=== PATIENT | female | born 1995 | race Caucasian/White ===

== ENCOUNTER 2023-03-13 16:10 | Emergency (ER) | payer SELFPAY ==
[2023-03-13 17:07] LABS: Absolute Lymphocytes (CBC) 2.6 K/uL (0.7-4.9); Hematocrit 41.6 % (36.0-45.0); Lymphocytes % 32.3 % (15.3-44.8); MCV 87.6 fL (80-100); MPV 9.1 fL (7.6-11.3); Platelets 234 thou/uL (152-406); RBC Red Blood Cell Count 4.75 M/uL (3.86-4.86)
[2023-03-13 17:26] LABS: Albumin 3.9 g/dL (3.4-5.0); Bilirubin Total 0.3 mg/dL (0.2-1.0); Potassium 3.8 mEq/L (3.5-5.1); Protein, Total 8.1 g/dL (6.4-8.2)
--- NOTE | 2023-03-13 17:48 | ER ---
Nurse's Notes [facility] Name: Shannon Mcgregor Age: 28 yrs Sex: Female : 1995 Arrival Date: 03/13/2023 Time: 16:10 Bed 5 Private MD: Diagnosis: Bacterial Vaginosis Presentation: 03/13 16:20 Chief complaint: Patient states: Suprapubic discomfort with odorous vaginal discharge ss that began 5 days ago. Coronavirus screen: Client denies travel out of the [place] in the last 14 days. Ebola Screen: Patient denies exposure to infectious person. Patient denies travel to an Ebola-affected area in the 21 days before illness onset. Initial Sepsis Screen: Does the patient meet any 2 criteria? No. Patient's initial sepsis screen is negative. Does the patient have a suspected source of infection? No. Patient's initial sepsis screen is negative. Risk Assessment: Do you want to hurt yourself or someone else? Patient reports no desire to harm self or others. Onset of symptoms was March 08, 2023. 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 - Social history:: Smoking status: Patient denies any tobacco usage or history of. Screenin:00 [facility] ED Fall Risk Assessment (Adult) Score/Fall Risk Level 0 - 2 = Low Risk hb Oriented to surroundings, Maintained a safe environment. Abuse screen: Denies threats or abuse. Denies injuries from another. Nutritional screening: No deficits noted. Tuberculosis screening: No symptoms or risk factors identified. Assessment: 16:50 General: Appears in no apparent distress. Behavior is calm, cooperative. Pain: Pain hb currently is 5 out of 10 on a pain scale. Neuro: Level of Consciousness is awake, alert, obeys commands, Oriented to person, place, time, situation. Cardiovascular: Patient's skin is warm and dry. Respiratory: Respiratory effort is even, unlabored, Respiratory pattern is regular, symmetrical. GI: No signs and/or symptoms were reported involving the gastrointestinal system. : Reports discharge, malodorous, pain in suprapubic area. EENT: No signs and/or symptoms were reported regarding the EENT system. Derm: Skin is pink, warm \T\ dry. Musculoskeletal: No signs and/or symptoms reported regarding the musculoskeletal system. Vital Signs: 16:20 Temp 97.7(TE); Weight 60.78 kg; Height 5 ft. 3 in. ; Pain 5/10; ss 16:20 Pulse 75; Resp 14; Pulse Ox 99% ; ss 16:22 BP 126 / 91; ss 16:20 Body Mass Index 23.74 (60.78 kg, 160.02 cm) ss 16:20 Pain Scale: Adult ss ED Course: 16:13 Patient arrived in ED. im 16:16 Anton Cheng MD is Attending Physician. ec2 16:22 Triage completed. ss 16:22 Arm band placed on right wrist. ss 16:45 Inserted saline lock: 20 gauge in right antecubital area, using aseptic technique. hb Blood collected. 16:50 Patient has correct armband on for positive identification. Provided Education on: . hb 16:54 Denisa English, RN is Primary Nurse. hb 17:05 Assist provider with pelvic exam: Set up pelvic tray. Performed by Anton Cheng MD hb Specimens sent to lab. Patient tolerated well. 18:14 IV discontinued, intact, bleeding controlled, No redness/swelling at site. hb Administered Medications: 18:05 Drug: metroNIDAZOLE PO 500 mg PO once Route: PO; hb 18:44 Follow up: Response: Medication administered at discharge. hb Medication: 16:50 VIS not applicable for this client. hb Outcome: 17:47 Discharge ordered by . ec2 18:15 Discharged to home ambulatory, hb 18:15 Condition: stable 18:15 Discharge instructions given to patient, Instructed on discharge instructions, follow up and referral plans. medication usage, Demonstrated understanding of instructions, follow-up care, medications, Prescriptions given X 1, 18:45 Patient left the ED. hb Signatures: Shu Shipman RN RN Denisa English, AQUILES RN Kaylie Bowman Anton Cheng MD MD ec2
--- NOTE | 2023-03-13 17:48 | EDPHYS ---
Physician Documentation [facility] Name: Shannon Mcgregor Age: 28 yrs Sex: Female : 1995 Arrival Date: 03/13/2023 Time: 16:10 Bed 5 Private MD: ED Physician Anton Cheng HPI: 03/13 16:34 This 28 yrs old Female presents to ER via Ambulatory with complaints of Lower ec2 abdominal pain -5 days. 16:34 Patient arrives today for evaluation of lower abdominal pain as well as vaginal ec2 discharge. Patient reports that she is been having occasional vaginal discharge is increased per her baseline. Patient reports she is also having some suprapubic discomfort. Patient reports no vomiting, no diarrhea, no urinary complaints. States that she has previous urinary tract infections does not feel similar.. 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 - Social history:: Smoking status: Patient denies any tobacco usage or history of. ROS: 16:34 Constitutional: as per hpi ec2 Exam: 16:34 Constitutional: GEN: NAD Head: atraumatic Eyes: EOMI Ears: External ears are ec2 normal. CV: regular rate LUNGS: no respiratory distress ABD: non-distended, soft, not guarding, minimally tender in the suprapubic region. SKIN: no evidence of rashes MSK: no evidence of trauma NEURO: moves all extremities equally Vital Signs: 16:20 Temp 97.7(TE); Weight 60.78 kg; Height 5 ft. 3 in. ; Pain 5/10; ss 16:20 Pulse 75; Resp 14; Pulse Ox 99% ; ss 16:22 BP 126 / 91; ss 16:20 Body Mass Index 23.74 (60.78 kg, 160.02 cm) ss 16:20 Pain Scale: Adult ss MDM: 16:26 Patient medically screened. ec2 16:34 Data reviewed: vital signs. ED course: Patient arrives today for evaluation of lower ec2 abdominal pain. Examination remarkable for well-appearing nontoxic individual is otherwise in no acute distress who has some suprapubic discomfort on abdominal examination. Will obtain basic lab work, urine studies and perform a speculum exam. Currently considering UTI, BV, STI. Patient states that she is not specifically concerned about STI would not like empiric antibiotic therapy. . 17:19 ED course: Pelvic examination performed under nurse supervision, shows thick white ec2 discharge coming from the cervix, no significant tenderness. Again discussed empiric therapy for STI however she declined.. 17:35 ED course: CBC is reassuring, reassuring metabolic profile, wet prep shows clue cells, ec2 consistent with BV. Will start on metronidazole. . 17:46 ED course: Likely culprit identified with BV. Will defer urine studies.. ec2 03/13 16:34 Order name: CBC with Diff; Complete Time: 17:19 ec2 03/13 16:34 Order name: CMP; Complete Time: 17:35 ec2 03/13 16:34 Order name: Lipase; Complete Time: 17:35 ec2 03/13 16:34 Order name: Wet Prep; Complete Time: 17:35 ec2 03/13 16:34 Order name: GC (Deepak/Chl) Probe VAGINAL (Do not order if pt is under 13, order Culture ec2 instead) 03/13 16:34 Order name: IV Saline Lock; Complete Time: 16:51 ec2 03/13 16:34 Order name: Labs collected and sent; Complete Time: 16:51 ec2 03/13 16:34 Order name: Setup-Pelvic Exam; Complete Time: 17:00 ec2 Administered Medications: 18:05 Drug: metroNIDAZOLE PO 500 mg PO once Route: PO; hb 18:44 Follow up: Response: Medication administered at discharge. hb Disposition Summary: 03/13/23 17:47 Discharge Ordered Notes: Location: Home ec2 Condition: Stable ec2 Diagnosis - Bacterial Vaginosis ec2 Discharge Instructions: - Discharge Summary Sheet eb - Bacterial Vaginosis, [id number] ec2 Forms: - SBAR form eb - Medication Reconciliation Form ec2 - Thank You Letter ec2 - Antibiotic Education ec2 - Prescription Opioid Use ec2 - Patient Portal Instructions ec2 - Leadership Thank You Letter ec2 Prescriptions: - Flagyl 500 mg Oral Tablet - take 1 tablet ORAL route every 12 hours for 7 days; 14 tablet; Refills: 0, ec2 Product Selection Permitted Signatures: [facility] Shu Claros RN RN Denisa English RN RN Anton Cheng MD MD ec2
[2023-03-13] MEDS ORDERED: metroNIDAZOLE 500 MG TABLET ONE (17:57)
[2023-03-13 19:05] VITALS: TEMP 97.7; O2SAT 99
[2023-03-13 19:10] VITALS: BP 126/91
[2023-03-17 03:15] LABS: C.trachomatis RNA,TMA Not Detected (Not Detected)
== END 2023-03-13 18:45 | disposition home or self-care (01) ==
LOC: ER 16:10
DX: N76.0 Acute vaginitis (principal)
CPT/HCPCS: 36415; 80053; 83690; 85025; 87210; 87490; 87590; 99284

== ENCOUNTER 2023-04-05 12:14 | Emergency (ER) | payer SELFPAY ==
[2023-04-05 13:08] LABS: Absolute Lymphocytes (CBC) 1.9 K/uL (0.7-4.9); Lymphocytes % 26.1 % (15.3-44.8); MCV 88.7 fL (80-100); Platelets 172 thou/uL (152-406); RBC Red Blood Cell Count 4.51 M/uL (3.86-4.86)
[2023-04-05 13:15] LABS: Specific Gravity 1.009 (1.005-1.030)
[2023-04-05 13:16] LABS: Specific Gravity 1.009 (1.005-1.030); Urine Bacteria None Seen /HPF (<20); Urine Bilirubin NEGATIVE (Negative); Urine Blood Negative (Negative); Urine Clarity Turbid (Clear); Urine Color Colorless (Yellow); Urine Glucose NEGATIVE (Negative); Urine Mucus Slight /HPF (None Seen); Urine Protein NEGATIVE (Negative); Urine RBC <5 /HPF (None Seen); Urine Urobilinogen Normal (Normal); Urine pH 5.5 (5.0-7.0)
[2023-04-05 13:33] LABS: Albumin 3.5 g/dL (3.4-5.0); Bilirubin Total 0.3 mg/dL (0.2-1.0); Protein, Total 7.1 g/dL (6.4-8.2)
--- NOTE | 2023-04-05 13:49 | RAD REPORT ---
EXAM DESCRIPTION: CT - Abdomen Pelvis W Contrast - 04/05/2023 1:31 pm CLINICAL HISTORY: Abdominal pain COMPARISON: none. TECHNIQUE: Computed axial tomography of the abdomen pelvis was obtained. 100 cc Isovue-300 was admin istered intravenously. Oral contrast was not requested which limits evaluation of bowel and appendix All CT scans are performed using dose optimization technique as appropriate and may include automated exposure control or mA/KV adjustment according to patient size. FINDINGS: Liver, spleen, pancreas, adrenals and right kidney unremarkable. Small left renal cyst No evidence of diverticulitis. Moderate amount of stool within the colon 2.6 centimeter right ovarian cyst without significant free fluid. No followup imaging recommended. Small umbilical hernia Appendectomy IMPRESSION: 2.6 centimeter right ovarian cyst without significant free fluid Moderate amount of stool within the colon
--- NOTE | 2023-04-05 13:59 | EDPHYS ---
Physician Documentation [facility] Name: Shannon Mcgregor Age: 28 yrs Sex: Female : 1995 Arrival Date: 04/05/2023 Time: 12:14 Bed 11 Private MD: ED Physician Jose Nguyễn HPI: 04/05 13:09 This 28 yrs old Female presents to ER via Ambulatory with complaints of Abdominal Pain. sp3 13:09 28-year-old female with history of anxiety and recent treatment for bacterial vaginosis sp3 completed on March 21, 2023 now presents to the ED with approximately 10-day history of abdominal pain on the left lower side. She states the pain is off and on and moderate in nature. She denies any other symptoms including continued vaginal discharge, bleeding, odor, dyspareunia, headache, URI symptoms, fever, neck pain, shortness of breath, chest pain, back pain, upper abdominal pain, vomiting or diarrhea, or any other signs or symptoms on ROS at this time. Patient states her menses are irregular and she cannot remember the last time she had it. Past surgical history includes appendectomy.. Historical: - Allergies: 12:38 Codeine; ll1 12:38 Zithromax; ll1 - PMHx: 12:38 Anxiety; ll1 - PSHx: 12:38 Appendectomy; ll1 - Immunization history:: Adult Immunizations up to date. - Social history:: Smoking status: Patient denies any tobacco usage or history of. ROS: 13:12 Constitutional: Negative for fever, chills, and weight loss, Eyes: Negative for injury, sp3 pain, redness, and discharge, ENT: Negative for injury, pain, and discharge, Neck: Negative for injury, pain, and swelling, Cardiovascular: Negative for chest pain, palpitations, and edema, Respiratory: Negative for shortness of breath, cough, wheezing, and pleuritic chest pain, Back: Negative for injury and pain, : Negative for injury, bleeding, discharge, and swelling, MS/Extremity: Negative for injury and deformity, Skin: Negative for injury, rash, and discoloration, Neuro: Negative for headache, weakness, numbness, tingling, and seizure, Psych: Negative for depression, anxiety, suicide ideation, homicidal ideation, and hallucinations, Allergy/Immunology: Negative for hives, rash, and allergies, Endocrine: Negative for neck swelling, polydipsia, polyuria, polyphagia, and marked weight changes, Hematologic/Lymphatic: Negative for swollen nodes, abnormal bleeding, and unusual bruising, 13:12 All other systems are negative, Exam: 13:12 Constitutional: This is a well developed, well nourished patient who is awake, alert, sp3 and in no acute distress. Head/Face: Normocephalic, atraumatic. Eyes: Pupils equal round and reactive to light, extra-ocular motions intact. Lids and lashes normal. Conjunctiva and sclera are non-icteric and not injected. Cornea within normal limits. Periorbital areas with no swelling, redness, or edema. ENT: Nares patent. No nasal discharge, no septal abnormalities noted. External auditory canals are clear. Oropharynx with no redness, swelling, or masses, exudates, or evidence of obstruction, uvula midline. Mucous membranes moist. Neck: Trachea midline, no thyromegaly or masses palpated, and no cervical lymphadenopathy. Supple, full range of motion without nuchal rigidity, or vertebral point tenderness. No Meningismus. Chest/axilla: Normal chest wall appearance and motion. Nontender with no deformity. No lesions are appreciated. Cardiovascular: Regular rate and rhythm with a normal S1 and S2. No gallops, murmurs, or rubs. Normal PMI, no JVD. No pulse deficits. Respiratory: Lungs have equal breath sounds bilaterally, clear to auscultation and percussion. No rales, rhonchi or wheezes noted. No increased work of breathing, no retractions or nasal flaring. Back: No spinal tenderness. No costovertebral tenderness. Full range of motion. Skin: Warm, dry with normal turgor. Normal color with no rashes, no lesions, and no evidence of cellulitis. MS/ Extremity: Pulses equal, no cyanosis. Neurovascular intact. Full, normal range of motion. Neuro: Awake and alert, GCS 15, oriented to person, place, time, and situation. Cranial nerves II-XII grossly intact. Motor strength 5/5 in all extremities. Sensory grossly intact. Cerebellar exam normal. Normal gait. Psych: Awake, alert, with orientation to person, place and time. Behavior, mood, and affect are within normal limits. 13:12 Abdomen/GI: Abdomen is soft with mild tenderness in the left lower quadrant. No rebound or guarding noted and no peritoneal signs. Nonsurgical abdomen., Vital Signs: 12:38 BP 141 / 87; Pulse 68; Resp 16; Temp 97.8; Pulse Ox 100% on R/A; Weight 60.78 kg; ll1 Height 5 ft. 3 in. ; Pain 5/10; 14:04 BP 124 / 82; Pulse 74; Resp 16; Pulse Ox 100% on R/A; mb9 12:38 Body Mass Index 23.74 (60.78 kg, 160.02 cm) ll1 12:38 Pain Scale: Adult ll1 MDM: 12:36 Patient medically screened. sp3 13:13 Data reviewed: vital signs, nurses notes, old medical records, lab test result(s), sp3 radiologic studies. ED course: 28-year-old female with recurrent left-sided abdominal pain. 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 Differential includes ovarian cyst, UTI, functional abdominal pain, GI related pain, constipation, among others. I am not highly suspicious for ovarian torsion, PID, or any other critical process at this time. Work-up will include CT scan of the abdomen pelvis, laboratory values, urine analysis and hCG and general observation.. 13:57 ED course: CT scan demonstrates 2.6 cm ovarian cyst on the right side and significant sp3 constipation. Laboratory values are all within normal limits. At this point no acute intervention is required and we will safely discharge patient home with discharge instructions for constipation.. 04/05 12:51 Order name: CBC with Diff; Complete Time: 13:40 sp3 04/05 12:51 Order name: CMP; Complete Time: 13:40 sp3 04/05 12:51 Order name: Lipase; Complete Time: 13:40 sp3 04/05 12:51 Order name: Test, Urine; Complete Time: 13:40 sp3 04/05 12:51 Order name: Urinalysis w/ reflexes; Complete Time: 13:40 sp3 04/05 12:51 Order name: CT Abd/Pelvis - IV Contrast Only; Complete Time: 13:57 sp3 04/05 12:51 Order name: IV Saline Lock; Complete Time: 13:02 sp3 04/05 12:51 Order name: Labs collected and sent; Complete Time: 13:02 sp3 Administered Medications: No medications were administered Disposition Summary: 04/05/23 13:58 Discharge Ordered Notes: Location: Home sp3 Condition: Stable sp3 Diagnosis - Abdominal pain, constipation sp3 Followup: sp3 - With: Private Physician - When: Upon discharge from the Emergency Department - Reason: Continuance of care Discharge Instructions: - Discharge Summary Sheet sp3 - Abdominal Pain, Adult sp3 - Constipation, Adult sp3 Forms: - Medication Reconciliation Form sp3 - Thank You Letter sp3 - Antibiotic Education sp3 - Prescription Opioid Use sp3 - Patient Portal Instructions sp3 - Leadership Thank You Letter sp3 Signatures: Dispatcher [employer] Zheng Yee RN RN ll1 Jose Nguyễn MD MD sp3
--- NOTE | 2023-04-05 13:59 | ER ---
Nurse's Notes [facility] Name: Shannon Mcgregor Age: 28 yrs Sex: Female : 1995 Arrival Date: 04/05/2023 Time: 12:14 Bed 11 Private MD: Diagnosis: Abdominal pain, constipation Presentation: 04/05 12:38 Chief complaint: Patient states: Lower abdominal pain continues since being treated ll1 here 3 weeks ago for B.V. Vaginal discharge is better now. Coronavirus screen: Vaccine status: Patient reports being unvaccinated. Client denies travel out of the [place] in the last 14 days. At this time, the client does not indicate any symptoms associated with coronavirus-19. Ebola Screen: Patient denies travel to an Ebola-affected area in the 21 days before illness onset. Initial Sepsis Screen: Does the patient meet any 2 criteria? No. Patient's initial sepsis screen is negative. Does the patient have a suspected source of infection? Yes: Acute abdominal pain. Risk Assessment: Do you want to hurt yourself or someone else? Patient reports no desire to harm self or others. Onset of symptoms. 12:38 Method Of Arrival: Ambulatory ll1 12:38 Acuity: ROLANDO 3 ll1 12:40 Onset of symptoms was March 08, 2023. 1 Triage Assessment: 12:40 General: Appears in no apparent distress. Behavior is calm, cooperative, appropriate ll1 for age. Pain: Complains of pain in pelvis Pain currently is 5 out of 10 on a pain scale. Quality of pain is described as aching, crampy. GI: Reports lower abdominal pain, cramping. Historical: - Allergies: 12:38 Codeine; ll1 12:38 Zithromax; ll1 - PMHx: 12:38 Anxiety; ll1 - PSHx: 12:38 Appendectomy; ll1 - Immunization history:: Adult Immunizations up to date. - Social history:: Smoking status: Patient denies any tobacco usage or history of. Screenin:43 [facility] ED Fall Risk Assessment (Adult) History of falling in the last 3 months, mb9 including since admission No falls in past 3 months (0 pts) Confusion or Disorientation No (0 pts) Intoxicated or Sedated No (0 pts) Impaired Gait No (0 pts) Mobility Assist Device Used No (0 pt) Altered Elimination No (0 pt) Score/Fall Risk Level 0 - 2 = Low Risk Oriented to surroundings, Maintained a safe environment, Educated pt \T\ family on fall prevention, incl call for assistance when getting out of bed. Abuse screen: Denies threats or abuse. Nutritional screening: No deficits noted. Tuberculosis screening: No symptoms or risk factors identified. Assessment: 13:00 General: Appears in no apparent distress. Behavior is calm, cooperative. Pain: mb9 Complains of pain in abdomen Pain radiates to LLQ and pelvis Quality of pain is described as throbbing, Is intermittent, Aggravated by increased activity. Neuro: Montoya Agitation-Sedation Scale (RASS): 0 - Alert and Calm Level of Consciousness is awake, alert, obeys commands, Oriented to person, place, time, situation, Appropriate for age. Cardiovascular: Patient's skin is warm and dry. Respiratory: Airway is patent Respiratory effort is even, unlabored, Respiratory pattern is regular, symmetrical. GI: Abdomen is flat, non-distended, Bowel sounds present X 4 quads. Abd is soft Abdomen is tender to palpation in suprapubic area and left lower quadrant Patient currently denies diarrhea, nausea, vomiting. : Urine is clear. EENT: No signs and/or symptoms were reported regarding the EENT system. Derm: Skin is pink, warm \T\ dry. Musculoskeletal: Range of motion: intact in all extremities. 13:59 Reassessment: No changes from previously documented assessment. Patient and/or family mb9 updated on plan of care and expected duration. Pain level reassessed. Patient is alert, oriented x 3, equal unlabored respirations, skin warm/dry/pink. Vital Signs: 12:38 BP 141 / 87; Pulse 68; Resp 16; Temp 97.8; Pulse Ox 100% on R/A; Weight 60.78 kg; ll1 Height 5 ft. 3 in. ; Pain 5/10; 14:04 BP 124 / 82; Pulse 74; Resp 16; Pulse Ox 100% on R/A; mb9 12:38 Body Mass Index 23.74 (60.78 kg, 160.02 cm) ll1 12:38 Pain Scale: Adult ll1 ED Course: 12:33 Patient arrived in ED. mg5 12:34 Jose Nguyễn MD is Attending Physician. sp3 12:40 Triage completed. ll1 12:40 Arm band placed on Patient placed in an exam room, on a stretcher. ll1 12:42 Onelia Mendoza, RN is Primary Nurse. mb9 12:43 Placed in gown. Bed in low position. Call light in reach. Side rails up X 1. Client mb9 placed on continuous cardiac and pulse oximetry monitoring. NIBP monitoring applied. 12:43 No provider procedures requiring assistance completed. mb9 12:59 Initial lab(s) drawn, by me, sent to lab. em1 13:01 Inserted saline lock: 20 gauge in right antecubital area, using aseptic technique. mb9 ,using aseptic technique. done by Owen Blood collected. 13:02 CBC with Diff Sent. mb9 13:02 CMP Sent. mb9 13:02 Lipase Sent. mb9 13:02 Test, Urine Sent. mb9 13:02 Urinalysis w/ reflexes Sent. mb9 13:33 CT Abd/Pelvis - IV Contrast Only In Process Unspecified. EDMS 13:59 IV discontinued, intact, bleeding controlled, No redness/swelling at site. Pressure mb9 dressing applied. Administered Medications: No medications were administered Medication: 12:43 VIS not applicable for this client. mb9 Outcome: 13:58 Discharge ordered by . sp3 14:04 Discharged to home ambulatory, mb9 14:04 Condition: stable 14:04 Discharge instructions given to patient, Instructed on discharge instructions, follow up and referral plans. Demonstrated understanding of instructions, follow-up care, 14:04 Patient left the ED. mb9 Signatures: Dispatcher [employer] Owen Davis em1 Zheng Randle, AQUILES RN ll1 Jose Nguyễn MD MD sp3 Onelia Mendoza, RN RN mb9 Anh Lieberman mg5 Corrections: (The following items were deleted from the chart) 13:01 12:42 Reassessment: see triage assessment mb9 mb9
[2023-04-05 14:18] VITALS: TEMP 97.8; O2SAT 100
[2023-04-05 14:23] VITALS: BP 124/82
== END 2023-04-05 14:04 | disposition home or self-care (01) ==
LOC: ER 12:14
DX: K59.00 Constipation, unspecified (principal); Z88.1 Allergy status to other antibiotic agents; Z88.5 Allergy status to narcotic agent
CPT/HCPCS: 36415; 74177; 80053; 81001; 81025; 83690; 85025; 99284; Q9967

== ENCOUNTER → 2023-06-19 | Emergency (ER) | payer OTHER, SELFPAY ==
[~2023-06-19] MED LIST: DIPHENHYDRAMINE 25 MG TAB/CAP ONE; KETOROLAC 30 MG/ML INJ ONE; predniSONE 20 MG TAB ONE
--- NOTE | 2023-06-19 19:18 | ER ---
Nurse's Notes [facility] Name: Shannon Mcgregor Age: 28 yrs Sex: Female : 1995 Arrival Date: 06/19/2023 Time: 18:07 Bed 12 Private MD: Diagnosis: Irritant contact dermatitis due to other agents Presentation: 06/19 18:17 Chief complaint: Patient states: used new acne treatment cream last night and now face ko1 and eyes are burning, has washed it off tiff has made acne worse. Coronavirus screen: At this time, the client does not indicate any symptoms associated with coronavirus-19. Ebola Screen: No symptoms or risks identified at this time. Initial Sepsis Screen: Does the patient meet any 2 criteria? No. Patient's initial sepsis screen is negative. Does the patient have a suspected source of infection? No. Patient's initial sepsis screen is negative. Risk Assessment: Do you want to hurt yourself or someone else? Patient reports no desire to harm self or others. Onset of symptoms is unknown. 18:17 Method Of Arrival: Ambulatory ko1 18:17 Acuity: ROLANDO 4 ko1 Triage Assessment: 18:21 General: Appears in no apparent distress. Behavior is calm, cooperative, appropriate ko1 for age. Pain: Complains of pain in face. Historical: - Allergies: 18:21 Codeine; ko1 18:21 Zithromax; ko1 - PMHx: 18:21 Anxiety; ko1 - PSHx: 18:21 Appendectomy; ko1 - Immunization history:: Adult Immunizations up to date. - Social history:: Smoking status: Patient denies any tobacco usage or history of. Screenin:27 [facility] ED Fall Risk Assessment (Adult) History of falling in the last 3 months, bp including since admission No falls in past 3 months (0 pts). Abuse screen: Denies threats or abuse. Denies injuries from another. Nutritional screening: No deficits noted. Tuberculosis screening: No symptoms or risk factors identified. Assessment: 18:30 General: SEE TRIAGE NOTE. bp 19:27 Reassessment: PT DC HOME AMBULATORY. bp Vital Signs: 18:17 BP 127 / 91; Pulse 72; Resp 14; Temp 98; Pulse Ox 100% ; ko1 19:28 BP 123 / 69; Pulse 75; Resp 16; Pulse Ox 100% ; bp ED Course: 18:10 Patient arrived in ED. ra3 18:11 [facility] Orellana [facility] sb4 18:11 Fredrick Lester MD is Attending Physician. sb4 18:21 Triage completed. ko1 18:21 Arm band placed on right wrist. Patient placed in an exam room, on a stretcher, Patient ko1 notified of wait time. 18:41 Fredy Jimenez, RN is Primary Nurse. bp 19:27 Patient has correct armband on for positive identification. bp 19:27 No provider procedures requiring assistance completed. Patient did not have IV access bp during this emergency room visit. Administered Medications: 18:45 Drug: diphenhydrAMINE PO 50 mg PO once Route: PO; bp 19:29 Follow up: Response: No adverse reaction bp 18:45 Drug: predniSONE PO 40 mg PO once Route: PO; bp 19:29 Follow up: Response: No adverse reaction bp 18:45 Drug: Ketorolac IM 30 mg IM once Route: IM; Site: left deltoid; bp 19:29 Follow up: Response: No adverse reaction bp Medication: 19:27 VIS not applicable for this client. bp Outcome: 19:18 Discharge ordered by MD. sb4 19:27 Discharged to home ambulatory, bp 19:27 Condition: stable 19:27 Discharge instructions given to patient, Instructed on discharge instructions, follow up and referral plans. medication usage, Demonstrated understanding of instructions, follow-up care, medications, Prescriptions given X 1, 19:29 Patient left the ED. bp Signatures: Fredy Jimenez RN RN bp Negrita Chavis RN RN ko1 Mi Orellana PA-C PA-C sb4 Nathalie Torres ra3
--- NOTE | 2023-06-19 19:18 | EDPHYS ---
Physician Documentation [facility] Name: Shannon Mcgregor Age: 28 yrs Sex: Female : 1995 Arrival Date: 06/19/2023 Time: 18:07 Bed 12 Private MD: ED Physician Fredrick Lester HPI: 06/19 18:38 This 28 yrs old Female presents to ER via Ambulatory with complaints of facial burning sb4 sensation. 18:38 patient states that she used a new OTC acne medication last night and now has had sb4 severe facial burning despite washing her face several times. she declines any systemic symptoms- no sob, chest pain, wheezing. took advil this morning but has not tried any other remedies. Historical: - Allergies: 18:21 Codeine; ko1 18:21 Zithromax; ko1 - PMHx: 18:21 Anxiety; ko1 - PSHx: 18:21 Appendectomy; ko1 - Immunization history:: Adult Immunizations up to date. - Social history:: Smoking status: Patient denies any tobacco usage or history of. ROS: 18:38 Constitutional: Negative for fever, chills, and weight loss, sb4 18:38 Skin: Positive for erythema, swelling, of the face, 18:38 All other systems are negative, Exam: 18:38 Constitutional: This is a well developed, well nourished patient who is awake, alert, sb4 and in no acute distress. Head/Face: Normocephalic, atraumatic. Eyes: Extra-ocular motions intact. Periorbital areas with no swelling, redness, or edema. ENT: Mucous membranes moist. MS/ Extremity: Pulses equal, no cyanosis. Neurovascular intact. Full, normal range of motion. Neuro: Awake and alert, GCS 15, oriented to person, place, time, and situation. Motor strength 5/5 in all extremities. Sensory grossly intact. 18:38 Skin: contact dermatitis, on the face, Vital Signs: 18:17 BP 127 / 91; Pulse 72; Resp 14; Temp 98; Pulse Ox 100% ; ko1 19:28 BP 123 / 69; Pulse 75; Resp 16; Pulse Ox 100% ; bp MDM: 18:23 Patient medically screened. sb4 19:11 Data reviewed: vital signs, nurses notes, and as a result, I will discharge patient. sb4 Administered Medications: 18:45 Drug: diphenhydrAMINE PO 50 mg PO once Route: PO; bp 19:29 Follow up: Response: No adverse reaction bp 18:45 Drug: predniSONE PO 40 mg PO once Route: PO; bp 19:29 Follow up: Response: No adverse reaction bp 18:45 Drug: Ketorolac IM 30 mg IM once Route: IM; Site: left deltoid; bp 19:29 Follow up: Response: No adverse reaction bp Disposition: 06/20 07:12 Co-signature as Attending Physician, Fredrick Lester MD I reviewed the patient's care rt provided by the Advanced Practice Provider and agree with the diagnosis and treatment plan. Disposition Summary: 06/19/23 19:18 Discharge Ordered Notes: Location: Home sb4 Problem: new sb4 Symptoms: have improved sb4 Condition: Stable sb4 Diagnosis - Irritant contact dermatitis due to other agents sb4 Followup: sb4 - With: Emergency Department - When: As needed - Reason: Trouble breathing, Worsening of condition Discharge Instructions: - Discharge Summary Sheet sb4 - Contact Dermatitis sb4 Forms: - Work release form sb4 - Thank You Letter sb4 - Patient Portal Instructions sb4 - Leadership Thank You Letter sb4 Prescriptions: - hydrocortisone acetate 1 % Topical cream - apply 1 application TOPICAL route 1 to 2 times per day as needed for skin sb4 irritation; 1 Applicator; Refills: 0, Product Selection Permitted Signatures: Fredy Jimenez, RN RN Negrita Clement RN RN koMi Woodson PA-C PA-C sb4 Fredrick Lester MD MD rt
[2023-06-19 19:49] VITALS: BP 123/69; TEMP 98; O2SAT 100
== END ==
LOC: ER 18:07
DX: L24.89 Irritant contact dermatitis due to other agents (principal); Z88.1 Allergy status to other antibiotic agents; Z88.5 Allergy status to narcotic agent
CPT/HCPCS: J7512

== ENCOUNTER → 2023-07-17 | Emergency (ER) | payer OTHER ==
--- NOTE | 2023-07-17 18:33 | EDPHYS ---
Physician Documentation [facility] Name: Shannon Mcgregor Age: 28 yrs Sex: Female : 1995 Arrival Date: 07/17/2023 Time: 18:13 Bed IW4 Private MD: ED Physician Chan Flowers HPI: 07/16 18:51 This 28 yrs old Female presents to ER via Ambulatory with complaints of Cyst. kb 18:51 Patient is a 28-year-old female who presents for redness, swelling and pain to chin kb that started 2 days ago. Denies fever. States she has had issues with infections to the area several times in the past.. 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 - Social history:: Smoking status: Patient denies any tobacco usage or history of. ROS: 18:50 Constitutional: As per HPI kb Exam: 18:51 Constitutional: This is a well developed, well nourished patient who is awake, alert, kb and in no acute distress. Head/Face: Normocephalic, atraumatic. ENT: Moist Mucous membranes Cardiovascular: Regular rate Respiratory: Respirations even and unlabored. No increased work of breathing. Talking in full sentences MS/ Extremity: Pulses equal, no cyanosis. Neurovascular intact. Full, normal range of motion. Neuro: Awake and alert, GCS 15, oriented to person, place, time, and situation. Moves all extremities. Normal gait. 18:51 Skin: abscess, that is small, of the chin, Vital Signs: 18:46 BP 129 / 85; Pulse 86; Resp 16; Temp 98.4(O); Pulse Ox 97% on R/A; Weight 58.97 kg; hb Height 5 ft. 2 in. ; Pain 7/10; 18:46 Body Mass Index 23.78 (58.97 kg, 157.48 cm) hb 18:46 Pain Scale: Adult hb MDM: 18:22 Patient medically screened. kb 18:51 Differential diagnosis: abscess, allergic reaction, cellulitis, insect bite. Data kb reviewed: vital signs, nurses notes. Counseling: I had a detailed discussion with the patient and/or guardian regarding the historical points, exam findings, and any diagnostic results supporting the discharge/admit diagnosis, the need for outpatient follow up, a family practitioner, to return to the emergency department if symptoms worsen or persist or if there are any questions or concerns that arise at home. ED course: Abscess deroofed and small amount of purulent drainage expressed. Patient educated to use warm compresses to the area and take all antibiotics prescribed.. Administered Medications: No medications were administered Disposition: 18:59 Co-signature as Attending Physician, Chan Flowers MD I agree with the assessment and cp3 plan of care. Disposition Summary: 07/17/23 18:33 Discharge Ordered Notes: Location: Home kb Condition: Stable kb Diagnosis - Cutaneous abscess of face - chin kb Followup: kb - With: Emergency Department - When: As needed - Reason: Worsening of condition Followup: kb - With: Private Physician - When: 2 - 3 days - Reason: Recheck today's complaints, Continuance of care, Re-evaluation by your physician Discharge Instructions: - Discharge Summary Sheet kb - Skin Abscess, [id number] kb Forms: - Medication Reconciliation Form kb - Thank You Letter kb - Antibiotic Education kb - Prescription Opioid Use kb - Patient Portal Instructions kb - Leadership Thank You Letter kb Prescriptions: - Doxycycline Hyclate 100 mg Oral Tablet - take 1 tablet ORAL route every 12 hours; 20 tablet; Refills: 0, Product kb Selection Permitted Signatures: Christie Martínez, CHELY-Chan Ramirez MD MD cp3 Denisa English, RN RN
--- NOTE | 2023-07-17 19:52 | ER ---
Nurse's Notes [facility] Name: Shannon Mcgregor Age: 28 yrs Sex: Female : 1995 Arrival Date: 07/17/2023 Time: 18:13 Bed IW4 Private MD: Diagnosis: Cutaneous abscess of face-chin Presentation: 07/16 18:46 Chief complaint: Redness and swelling on chin x 3 days. Coronavirus screen: At this hb time, the client does not indicate any symptoms associated with coronavirus-19. Ebola Screen: No symptoms or risks identified at this time. Initial Sepsis Screen: Does the patient meet any 2 criteria? No. Patient's initial sepsis screen is negative. Does the patient have a suspected source of infection? No. Patient's initial sepsis screen is negative. Risk Assessment: Do you want to hurt yourself or someone else? Patient reports no desire to harm self or others. Onset of symptoms was July 14, 2023. 18:46 Method Of Arrival: Ambulatory hb 18:46 Acuity: ROLANDO 4 hb Triage Assessment: 18:49 General: Appears in no apparent distress. Behavior is calm, cooperative. Pain: Pain hb currently is 7 out of 10 on a pain scale. Neuro: Level of Consciousness is awake, alert, obeys commands, Oriented to person, place, time, situation. Cardiovascular: Patient's skin is warm and dry. Respiratory: Respiratory effort is even, unlabored, Respiratory pattern is regular, symmetrical. Derm: redness and swelling noted to chin. 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 - Social history:: Smoking status: Patient denies any tobacco usage or history of. Screenin:50 [facility] ED Fall Risk Assessment (Adult) History of falling in the last 3 months, jb4 including since admission No falls in past 3 months (0 pts) Confusion or Disorientation No (0 pts) Intoxicated or Sedated No (0 pts) Impaired Gait No (0 pts) Mobility Assist Device Used No (0 pt) Altered Elimination No (0 pt) Score/Fall Risk Level 0 - 2 = Low Risk Oriented to surroundings, Maintained a safe environment. Abuse screen: Denies threats or abuse. Nutritional screening: No deficits noted. Tuberculosis screening: No symptoms or risk factors identified. Assessment: 19:50 General: Appears in no apparent distress. comfortable, Behavior is calm, cooperative, jb4 appropriate for age. Pain: Denies pain. Neuro: Level of Consciousness is awake, alert, obeys commands, Oriented to person, place, time, situation. Cardiovascular: Patient's skin is warm and dry. Respiratory: Airway is patent Respiratory effort is even, unlabored, Respiratory pattern is regular, symmetrical. GI: No signs and/or symptoms were reported involving the gastrointestinal system. : No signs and/or symptoms were reported regarding the genitourinary system. EENT: No signs and/or symptoms were reported regarding the EENT system. Derm: Skin is intact, Skin is pink, warm \T\ dry. Abscess located on chin. Musculoskeletal: Circulation, motion, and sensation intact. Range of motion: intact in all extremities. Vital Signs: 18:46 BP 129 / 85; Pulse 86; Resp 16; Temp 98.4(O); Pulse Ox 97% on R/A; Weight 58.97 kg; hb Height 5 ft. 2 in. ; Pain 7/10; 18:46 Body Mass Index 23.78 (58.97 kg, 157.48 cm) hb 18:46 Pain Scale: Adult hb ED Course: 18:19 Patient arrived in ED. mg5 18:22 Christie Martínez FNP-C [facility]. kb 18:22 Chan Flowers MD is Attending Physician. kb 18:49 Triage completed. hb 18:49 Arm band placed on. hb 19:50 Patient has correct armband on for positive identification. Provided Education on: jb4 Discharge and follow up. 19:50 No provider procedures requiring assistance completed. Patient did not have IV access jb4 during this emergency room visit. Administered Medications: No medications were administered Medication: 19:50 VIS not applicable for this client. jb4 Outcome: 18:33 Discharge ordered by . kb 19:50 Discharged to home ambulatory, jb4 19:50 Condition: stable 19:50 Discharge instructions given to patient, Instructed on discharge instructions, follow up and referral plans. medication usage, Demonstrated understanding of instructions, follow-up care, medications, Prescriptions given X , 19:51 Patient left the ED. jb4 Signatures: Christie Martínez FNP-C FNP-Ckb Baxter, Heather, RN RN Raul Brennan RN RN jb4 Anh Lieberman 5
[2023-07-17 20:13] VITALS: BP 129/85; TEMP 98.4; O2SAT 97
== END ==
LOC: ER 18:13
DX: L02.01 Cutaneous abscess of face (principal); Z88.1 Allergy status to other antibiotic agents; Z88.5 Allergy status to narcotic agent
CPT/HCPCS: 99283

== ENCOUNTER 2024-03-05 23:51 | Emergency (ER) | payer SELFPAY ==
[2024-03-06] MEDS ORDERED: KETOROLAC 30 MG/ML INJ ONE (01:32)
[2024-03-06] MEDS ORDERED: HYDROCODONE/APAP 5/325 MG TAB ONE (01:32)
[2024-03-06] MEDS ORDERED: methocarbamoL 750 MG TAB ONE (01:32)
[2024-03-06 01:42] LABS: Specific Gravity 1.013 (1.005-1.030)
--- NOTE | 2024-03-06 03:31 | ER ---
Nurse's Notes [facility] Name: Shannon Mcgregor Age: 29 yrs Sex: Female : 1995 Arrival Date: 03/05/2024 Time: 23:51 Bed 13 Private MD: Diagnosis: Lumbago with sciatica, left side Presentation: 03/06 00:00 Chief complaint: Patient states: left sciatica pain x 2 days. Coronavirus screen: Vaccine status: Patient reports being unvaccinated. Ebola Screen: Patient negative for fever greater than or equal to 101.5 degrees Fahrenheit, and additional compatible Ebola Virus Disease symptoms. Initial Sepsis Screen: Does the patient meet any 2 criteria? No. Patient's initial sepsis screen is negative. Does the patient have a suspected source of infection? No. Patient's initial sepsis screen is negative. Risk Assessment: Do you want to hurt yourself or someone else? Patient reports no desire to harm self or others. Onset of symptoms was March 04, 2024. 00:00 Method Of Arrival: Ambulatory 00:00 Acuity: ROLANDO 4 kl Triage Assessment: 00:02 General: Appears in no apparent distress. Behavior is calm, cooperative. Pain: Complains of pain in left gluteus lucas Pain currently is 8 out of 10 on a pain scale. Musculoskeletal: Circulation, motion, and sensation intact. Capillary refill < 3 seconds, Range of motion: intact in all extremities, Reports pain in left leg. 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 - Infectious Disease History:: Denies. - Social history:: Smoking status: Patient reports the use of cigarette tobacco products, Reported history of juuling and/or vaping. - Family history:: not pertinent. Screenin:10 [facility] ED Fall Risk Assessment (Adult) History of falling in the last 3 months, rg5 including since admission No falls in past 3 months (0 pts) Confusion or Disorientation No (0 pts) Intoxicated or Sedated No (0 pts) Impaired Gait No (0 pts) Mobility Assist Device Used No (0 pt) Altered Elimination No (0 pt) Score/Fall Risk Level 0 - 2 = Low Risk Oriented to surroundings, Maintained a safe environment, Hourly rounding (assess needs \T\ fall precautionary measures) done. Abuse screen: Denies threats or abuse. Nutritional screening: No deficits noted. Tuberculosis screening: No symptoms or risk factors identified. Assessment: 00:10 General: Appears in no apparent distress. Behavior is calm, cooperative. rg5 00:10 Pain: Complains of pain in left leg Pain currently is 8 out of 10 on a pain scale. rg5 Neuro: Level of Consciousness is awake, alert, Oriented to person, place, time. Cardiovascular: No deficits noted. Respiratory: Airway is patent Trachea midline Respiratory effort is even, unlabored. GI: Abdomen is flat, non-distended. : No signs and/or symptoms were reported regarding the genitourinary system. EENT: No deficits noted. Derm: Skin is intact, Skin is dry, Skin is normal, Skin temperature is warm. Musculoskeletal: Circulation, motion, and sensation intact. Range of motion: intact in all extremities. 01:10 Reassessment: Patient and/or family updated on plan of care and expected duration. Pain rg5 level reassessed. Patient is alert, oriented x 3, equal unlabored respirations, skin warm/dry/pink. 02:00 Reassessment: Patient and/or family updated on plan of care and expected duration. Pain rg5 level reassessed. Patient is alert, oriented x 3, equal unlabored respirations, skin warm/dry/pink. 03:09 Reassessment: Patient and/or family updated on plan of care and expected duration. Pain rg5 level reassessed. Patient is alert, oriented x 3, equal unlabored respirations, skin warm/dry/pink. Patient states feeling better. Patient states symptoms have improved. 03:49 Reassessment: Patient and/or family updated on plan of care and expected duration. Pain rg5 level reassessed. Patient is alert, oriented x 3, equal unlabored respirations, skin warm/dry/pink. Patient states feeling better. Patient states symptoms have improved. Vital Signs: 00:00 BP 126 / 99; Pulse 109; Resp 16; Temp 97.8(TE); Pulse Ox 100% on R/A; Height 5 ft. 3 kl in. ; Pain 8/10; 00:10 BP 126 / 99; Pulse 100; Resp 17; Temp 98; Pulse Ox 99% on R/A; Pain 7/10; rg5 01:30 BP 114 / 81; Pulse 99; Resp 18; Pulse Ox 100% on R/A; Pain 6/10; rg5 02:25 BP 110 / 80; Pulse 98; Resp 18 S; Pulse Ox 99% on R/A; rg5 03:07 BP 106 / 75; Pulse 85; Resp 17; Temp 98(O); Pulse Ox 99% ; Pain 4/10; rg5 03:09 BP 106 / 75; Pulse 85; Resp 17; Pulse Ox 98% on R/A; Pain 4/10; rg5 00:00 Pain Scale: Adult kl 00:10 Pain Scale: Adult rg5 01:30 Pain Scale: Adult rg5 03:07 Pain Scale: Adult rg5 03:09 Pain Scale: Adult rg5 Drea Coma Score: 03:28 Eye Response: spontaneous(4). Motor Response: obeys commands(6). Verbal Response: sp4 oriented(5). Total: 15. ED Course: 03/05 23:55 Patient arrived in ED. mr 23:56 Jacky Mane MD is Attending Physician. sp4 03/06 00:01 Triage completed. kl 00:10 Patient has correct armband on for positive identification. Bed in low position. Call rg5 light in reach. Side rails up X 1. 00:10 Arm band placed on. rg5 00:10 No provider procedures requiring assistance completed. rg5 01:00 Hakan Jewell, AQUILES is Primary Nurse. rg5 02:17 CT Lumbar Spine Wo Con In Process Unspecified. EDMS 03:45 Provided Education on: post er care. rg5 03:46 Patient did not have IV access during this emergency room visit. rg5 Administered Medications: 02:13 Drug: HYDROcodone-acetaminophen PO 5 mg-325 mg 2 tabs PO once Route: PO; rg5 03:07 Follow up: BP 106 / 75; Pulse 85 bpm; Resp 17 bpm; Temp 98 Oral; Pulse Ox 99% ; Pain rg5 410 Adult 03:08 Follow up: Response: No adverse reaction; Pain is decreased rg5 02:13 Drug: Ketorolac IM 30 mg IM once Route: IM; Site: right deltoid; rg5 03:07 Follow up: Response: No adverse reaction rg5 02:13 Drug: Methocarbamol PO 1500 mg PO once Route: PO; rg5 03:07 Follow up: Response: No adverse reaction rg5 03:30 Drug: traMADol PO 100 mg PO once Route: PO; rg5 03:45 Follow up: Response: No adverse reaction; Pain is decreased rg5 03:30 Drug: predniSONE PO 60 mg PO once Route: PO; rg5 03:45 Follow up: Response: No adverse reaction; Pain is decreased rg5 Medication: 00:10 VIS not applicable for this client. rg5 Outcome: 03:31 Discharge ordered by . alyssia 04:13 Discharged to home ambulatory, rg5 04:13 Condition: stable 04:13 Discharge instructions given to patient, Instructed on discharge instructions, follow up and referral plans. Demonstrated understanding of instructions, follow-up care, medications, Prescriptions given X 3, 04:14 Patient left the ED. rg5 Signatures: Dispatcher [employer] EDHawa Coe, RN Onelia Lino [facility] Jacky Zazueta MD MD sp4 Hakan Jewell RN RN rg5
--- NOTE | 2024-03-06 03:32 | EDPHYS ---
Physician Documentation [facility] Name: Shannon Mcgregor Age: 29 yrs Sex: Female : 1995 Arrival Date: 03/05/2024 Time: 23:51 Bed 13 Private MD: ED Physician Jacky Mane HPI: 03/05 23:56 This 29 yrs old Other Race Female presents to ER via Unassigned with complaints of Back sp4 Pain, Leg Pain. 03/06 03:28 29 year old female with history of spinal injury presents with left leg pain similar to sp4 prior sciatica. . 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 - Infectious Disease History:: Denies. - Social history:: Smoking status: Patient reports the use of cigarette tobacco products, Reported history of juuling and/or vaping. - Family history:: not pertinent. ROS: 03:28 Constitutional: Negative for fever, chills, and weight loss, positive for left lower sp4 back pain and left leg pain 03:28 All other systems are negative, Exam: 03:28 Constitutional: This is a well developed, well nourished patient who is awake, alert, sp4 and in no acute distress. Head/Face: Normocephalic, atraumatic. Eyes: Pupils equal round and reactive to light, extra-ocular motions intact. Lids and lashes normal. Conjunctiva and sclera are not injected. Cornea within normal limits. Periorbital areas with no swelling, redness, or edema. ENT: Nares patent. No nasal discharge, no septal abnormalities noted. Tympanic membranes are normal and external auditory canals are clear. Oropharynx with no redness, swelling, or masses, exudates, or evidence of obstruction, uvula midline. Mucous membranes moist. Neck: Trachea midline, no thyromegaly or masses palpated, and no cervical lymphadenopathy. Supple, full range of motion without nuchal rigidity, or vertebral point tenderness. Chest/axilla: Normal chest wall appearance and motion. Nontender with no deformity. No lesions are appreciated. Cardiovascular: Regular rate and rhythm with a normal S1 and S2. No gallops, murmurs, or rubs. Normal PMI, no JVD. No pulse deficits. Respiratory: Lungs have equal breath sounds bilaterally, clear to auscultation and percussion. No rales, rhonchi or wheezes noted. No increased work of breathing, no retractions or nasal flaring. Abdomen/GI: Soft, with normal bowel sounds. No distension or tympany. No guarding or rebound. No evidence of tenderness throughout. Back: No spinal tenderness. No costovertebral tenderness. Skin: Warm, dry with normal turgor. Normal color with no rashes, no lesions, and no evidence of cellulitis. MS/ Extremity: Pulses equal, no cyanosis. Neurovascular intact. Full, normal range of motion. positive Left straing leg raise Neuro: Awake and alert, GCS 15, oriented to person, place, time, and situation. Cranial nerves II-XII grossly intact. Motor strength 5/5 in all extremities. Sensory grossly intact. Psych: Awake, alert, with orientation to person, place and time. Behavior, mood, and affect are within normal limits Vital Signs: 00:00 BP 126 / 99; Pulse 109; Resp 16; Temp 97.8(TE); Pulse Ox 100% on R/A; Height 5 ft. 3 kl in. ; Pain 8/10; 00:10 BP 126 / 99; Pulse 100; Resp 17; Temp 98; Pulse Ox 99% on R/A; Pain 7/10; rg5 01:30 BP 114 / 81; Pulse 99; Resp 18; Pulse Ox 100% on R/A; Pain 6/10; rg5 02:25 BP 110 / 80; Pulse 98; Resp 18 S; Pulse Ox 99% on R/A; rg5 03:07 BP 106 / 75; Pulse 85; Resp 17; Temp 98(O); Pulse Ox 99% ; Pain 4/10; rg5 03:09 BP 106 / 75; Pulse 85; Resp 17; Pulse Ox 98% on R/A; Pain 4/10; rg5 00:00 Pain Scale: Adult kl 00:10 Pain Scale: Adult rg5 01:30 Pain Scale: Adult rg5 03:07 Pain Scale: Adult rg5 03:09 Pain Scale: Adult rg5 Drea Coma Score: 03:28 Eye Response: spontaneous(4). Motor Response: obeys commands(6). Verbal Response: sp4 oriented(5). Total: 15. MDM: 00:00 Medical Screening Exam initiated sp4 03:22 ED course: PROCEDURE: CT Lumbar Spine Without Intravenous Contrast CLINICAL INDICATION: sp4 The patient is 29 years old and is Female; Lower back pain. TECHNIQUE: Axial computed tomography images of the lumbar spine without intravenous contrast. Sagittal and coronal reformatted images were created and reviewed. This CT exam was performed using one or more of the following dose reduction techniques: automated exposure control, adjustment of the mA and/or kV according to patient size, and/or use of iterative reconstruction technique. COMPARISON: CTAbdomen pelvis 04/05/2023. FINDINGS: VERTEBRAE: Unremarkable. No acute fracture. No suspicious lytic or blastic bone lesions. DISCS/SPINAL CANAL/NEURAL FORAMINA: No acute findings. No spinal canal stenosis. SOFT TISSUES: Small fat-containing umbilical hernia. APPENDIX: Appendectomy changes. IMPRESSION: No acute abnormality of the lumbar spine. . 03:28 Differential diagnosis: arthritis, Fatigue Fracture spinal injury, sprain. Data sp4 reviewed: vital signs, nurses notes, lab test result(s), radiologic studies, CT scan. ED course: pain has improved. patient stable for discharge home with Ibuprofen, Tramadol, Robaxin . 11 00:50 Order name: Test, Urine; Complete Time: 02:57 sp4 11 00:50 Order name: CT Lumbar Spine Wo Con sp4 Administered Medications: 02:13 Drug: HYDROcodone-acetaminophen PO 5 mg-325 mg 2 tabs PO once Route: PO; rg5 03:07 Follow up: BP 106 / 75; Pulse 85 bpm; Resp 17 bpm; Temp 98 Oral; Pulse Ox 99% ; Pain rg5 08/09 Adult 03:08 Follow up: Response: No adverse reaction; Pain is decreased rg5 02:13 Drug: Ketorolac IM 30 mg IM once Route: IM; Site: right deltoid; rg5 03:07 Follow up: Response: No adverse reaction rg5 02:13 Drug: Methocarbamol PO 1500 mg PO once Route: PO; rg5 03:07 Follow up: Response: No adverse reaction rg5 03:30 Drug: traMADol PO 100 mg PO once Route: PO; rg5 03:45 Follow up: Response: No adverse reaction; Pain is decreased rg5 03:30 Drug: predniSONE PO 60 mg PO once Route: PO; rg5 03:45 Follow up: Response: No adverse reaction; Pain is decreased rg5 Disposition Summary: 03/06/24 03:31 Discharge Ordered Notes: Location: Home sp4 Problem: new sp4 Symptoms: have improved sp4 Condition: Stable sp4 Diagnosis - Lumbago with sciatica, left side sp4 Followup: sp4 - With: Private Physician - When: 7 - 10 days - Reason: Recheck today's complaints Discharge Instructions: - Discharge Summary Sheet sp4 - Sciatica sp4 - Form - Return To Work vk Forms: - Patient Portal Instructions sp4 - Work release form rg5 Prescriptions: - tramadol 100 mg Oral tablet - take 1 tablet ORAL route every 8 hours PRN pain; 20 tablet; Refills: 0, Product sp4 Selection Permitted - Ibuprofen 600 mg Oral Tablet - take 1 tablet ORAL route every 6 hours As needed take with food; 30 tablet; sp4 Refills: 0, Product Selection Permitted - methocarbamol 750 mg Oral tablet - take 1 tablet ORAL route every 8 hours for 14 days PRN pain; 60 tablet; sp4 Refills: 0, Product Selection Permitted Signatures: Dispatcher [employer] Hawa Yee, RN Jacky Decker MD MD sp4 Hakan Jewell RN RN rg5
[2024-03-06] MEDS ORDERED: predniSONE 20 MG TAB ONE (03:36)
[2024-03-06] MEDS ORDERED: TRAMADOL HCL 50 MG TAB ONE (03:36)
--- NOTE | 2024-03-06 03:46 | RAD REPORT ---
PROCEDURE: CT Lumbar Spine Without Intravenous Contrast CLINICAL INDICATION: The patient is 29 years old and is Female; Lower back pain. TECHNIQUE: Axial computed tomography images of the lumbar spine without intravenous contrast. Sagittal and cor onal reformatted images were created and reviewed. This CT exam was performed using one or more of the following dose reduction techniques: automated exposure control, adjustment of the mA and/or kV according to patient size, and/or use of iterative reconstruction technique. COMPARISON: CT Abdomen pelvis 04/05/2023. FINDINGS: VERTEBRAE: Unremarkable. No acute fracture. No suspicious lytic or blastic bone lesions. DISCS/SPINAL CANAL/NEURAL FORAMINA: No acute findings. No spinal canal stenosis. SOFT TISSUES: Small fat-containing umbilical hernia. APPENDIX: Appendectomy changes. IMPRESSION: No acute abnormality of the lumbar spine. Electronically signed by: Say Goodson MD 03/06/2024 03:15 AM [facility] Due to temporary technical issues with the PACS/View the Space reporting system, reports are being john d by the in-house radiologist without review as a courtesy to ensure prompt reporting the interpreting radiologist is fully responsible for the content of the report. Transcribed Date/Time: 03/06/2024 3:46 AM
[2024-03-06 04:22] VITALS: TEMP 98
[2024-03-06 04:25] VITALS: BP 106/75
[2024-03-06 04:26] VITALS: O2SAT 98
== END 2024-03-06 04:14 | disposition home or self-care (01) ==
LOC: ER 23:51
DX: M54.42 Lumbago with sciatica, left side (principal); Z72.0 Tobacco use
CPT/HCPCS: 72131; 81025; J7512

== ENCOUNTER 2024-03-27 09:45 | Emergency (ER) | payer SELFPAY ==
--- NOTE | 2024-03-27 11:21 | ER ---
Nurse's Notes [facility] Name: Shannon Mcgregor Age: 29 yrs Sex: Female : 1995 Arrival Date: 03/27/2024 Time: 09:45 Bed 12 Private MD: Diagnosis: Acute tonsillitis, unspecified;Streptococcal tonsillitis;Fever, unspecified Presentation: 03/27 10:12 Chief complaint: Patient states: not feeling well, throat hurts, pus on tonsils , my iw right ear hurts, +fever, symptoms started yesterday when she woke up. Coronavirus screen: At this time, the client does not indicate any symptoms associated with coronavirus-19. Ebola Screen: No symptoms or risks identified at this time. Initial Sepsis Screen: Does the patient meet any 2 criteria? No. Patient's initial sepsis screen is negative. Does the patient have a suspected source of infection? No. Patient's initial sepsis screen is negative. Risk Assessment: Do you want to hurt yourself or someone else? Patient reports no desire to harm self or others. Onset of symptoms was March 26, 2024. 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 - Infectious Disease History:: Denies. - Social history:: Smoking status: Patient denies any tobacco usage or history of. Screenin:17 [facility] ED Fall Risk Assessment (Adult) History of falling in the last 3 months, iw including since admission No falls in past 3 months (0 pts) Confusion or Disorientation No (0 pts) Intoxicated or Sedated No (0 pts) Impaired Gait No (0 pts) Mobility Assist Device Used No (0 pt) Altered Elimination No (0 pt) Score/Fall Risk Level 0 - 2 = Low Risk Oriented to surroundings, Maintained a safe environment. Abuse screen: Denies threats or abuse. Nutritional screening: No deficits noted. Tuberculosis screening: No symptoms or risk factors identified. Assessment: 10:17 General: Appears in no apparent distress. Behavior is calm, cooperative. Pain: iw Complains of pain in throat. Neuro: Level of Consciousness is awake, alert, obeys commands, Oriented to person, place, time, situation, Moves all extremities. Full function. Cardiovascular: Patient's skin is warm and dry. Respiratory: Airway is patent Respiratory effort is even, unlabored, EENT: Throat. Derm: Skin is intact, is healthy with good turgor. Musculoskeletal: Range of motion: intact in all extremities. 11:07 EENT: Throat has patchy exudate has enlarged tonsils on right. iw Vital Signs: 10:12 BP 124 / 74; Pulse 63; Resp 16; Temp 98.2(O); Pulse Ox 100% ; Weight 54.43 kg; Height 5 iw ft. 3 in. ; Pain 7/10; 10:12 Body Mass Index 21.26 (54.43 kg, 160.02 cm) iw 10:12 Pain Scale: Adult iw ED Course: 09:48 Patient arrived in ED. ra3 09:50 Sen Diana MD is Attending Physician. soy 10:13 Triage completed. iw 10:14 Arm band placed on. iw 10:16 Judy Marr, RN is Primary Nurse. iw 11:07 No provider procedures requiring assistance completed. Patient did not have IV access iw during this emergency room visit. Administered Medications: 11:35 Drug: Rocephin (cefTRIAXone) IM 1 grams IM once Route: IM; Site: left ventrogluteal; iw 11:35 Drug: Amoxicillin-Clavulanate PO 875 mg PO once Route: PO; iw Medication: 10:18 VIS not applicable for this client. iw Outcome: 11:20 Discharge ordered by . soy 11:59 Patient left the ED. db Signatures: Sen Diana MD MD cha Williams, Irene, RN AQUILES iw Kay Duran RN RN db Nathalie Torres ra3 Corrections: (The following items were deleted from the chart) 11:29 10:12 BP 124 / 74; Pulse 63bpm; Resp 16bpm; Pulse Ox 100%; 54.43 kg; Height 5 ft. 3 iw in.; BMI: 21.2; Pain 7/10, Adult; iw
--- NOTE | 2024-03-27 11:21 | EDPHYS ---
Physician Documentation [facility] Name: Shannon Mcgregor Age: 29 yrs Sex: Female : 1995 Arrival Date: 03/27/2024 Time: 09:45 Bed 12 Private MD: ED Physician Sen Diana HPI: 03/27 11:09 This 29 yrs old Female presents to ER via Ambulatory with complaints of Sore soy Throat - Bleeding. 11:09 The patient presents with sore throat. The patient describes throat pain as raw. Onset: soy The symptoms/episode began/occurred 1 day(s) ago. Severity of symptoms: At their worst the symptoms were mild, moderate, in the emergency department the symptoms are unchanged. Modifying factors: The symptoms are alleviated by nothing, the symptoms are aggravated by swallowing. Associated signs and symptoms: The patient has no apparent associated signs or symptoms. The patient has experienced similar episodes in the past, a few times. 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 - Infectious Disease History:: Denies. - Social history:: Smoking status: Patient denies any tobacco usage or history of. ROS: 11:10 Constitutional: Negative for fever, chills, and weight loss, Eyes: Negative for injury, soy pain, redness, and discharge, Neck: Negative for injury, pain, and swelling, Cardiovascular: Negative for chest pain, palpitations, and edema, Respiratory: Negative for shortness of breath, cough, wheezing, and pleuritic chest pain, Abdomen/GI: Negative for abdominal pain, nausea, vomiting, diarrhea, and constipation, Back: Negative for injury and pain, : Negative for injury, bleeding, discharge, and swelling, MS/Extremity: Negative for injury and deformity, Skin: Negative for injury, rash, and discoloration, Neuro: Negative for headache, weakness, numbness, tingling, and seizure, Psych: Negative for depression, anxiety, suicide ideation, homicidal ideation, and hallucinations, Allergy/Immunology: Negative for hives, rash, and allergies, Endocrine: Negative for neck swelling, polydipsia, polyuria, polyphagia, and marked weight changes, Hematologic/Lymphatic: Negative for swollen nodes, abnormal bleeding, and unusual bruising, 11:10 ENT: Positive for sore throat, Exam: 11:10 Constitutional: This is a well developed, well nourished patient who is awake, alert, soy and in no acute distress. Head/Face: Normocephalic, atraumatic. Eyes: Pupils equal round and reactive to light, extra-ocular motions intact. Lids and lashes normal. Conjunctiva and sclera are non-icteric and not injected. Cornea within normal limits. Periorbital areas with no swelling, redness, or edema. Neck: Trachea midline, no thyromegaly or masses palpated, and no cervical lymphadenopathy. Supple, full range of motion without nuchal rigidity, or vertebral point tenderness. No Meningismus. Chest/axilla: Normal chest wall appearance and motion. Nontender with no deformity. No lesions are appreciated. Cardiovascular: Regular rate and rhythm with a normal S1 and S2. No gallops, murmurs, or rubs. Normal PMI, no JVD. No pulse deficits. Respiratory: Lungs have equal breath sounds bilaterally, clear to auscultation and percussion. No rales, rhonchi or wheezes noted. No increased work of breathing, no retractions or nasal flaring. Abdomen/GI: Soft, non-tender, with normal bowel sounds. No distension or tympany. No guarding or rebound. No evidence of tenderness throughout. Back: No spinal tenderness. No costovertebral tenderness. Full range of motion. Pelvic Exam: Normal external genitalia. Speculum exam with closed cervical os, no discharge or bleeding noted. Bimanual exam with normal adnexa, no adnexal or cervical motion tenderness. Normal uterus. Female : Normal external genitalia. Skin: Warm, dry with normal turgor. Normal color with no rashes, no lesions, and no evidence of cellulitis. MS/ Extremity: Pulses equal, no cyanosis. Neurovascular intact. Full, normal range of motion. Neuro: Awake and alert, GCS 15, oriented to person, place, time, and situation. Cranial nerves II-XII grossly intact. Motor strength 5/5 in all extremities. Sensory grossly intact. Cerebellar exam normal. Normal gait. Psych: Awake, alert, with orientation to person, place and time. Behavior, mood, and affect are within normal limits. 11:10 ENT: Posterior pharynx: Airway: normal, no evidence of obstruction, Tonsils: bilaterally enlarged, with erythema, with exudate, Uvula: normal, midline, non-edematous, no erythema, swelling, is not appreciated, erythema, is not appreciated, exudate, is not appreciated, peritonsillar mass, is not appreciated, pooling of secretions, is not appreciated, Vital Signs: 10:12 BP 124 / 74; Pulse 63; Resp 16; Temp 98.2(O); Pulse Ox 100% ; Weight 54.43 kg; Height 5 iw ft. 3 in. ; Pain 7/10; 10:12 Body Mass Index 21.26 (54.43 kg, 160.02 cm) iw 10:12 Pain Scale: Adult iw MDM: 10:22 Medical Screening Exam initiated [facility] 11:11 Differential diagnosis: echovirus infection, group A strep tonsillitis, influenza, soy laryngitis, peritonsillar abscess chlamydia pharyngitis, neisseria gonorrheoeae pharangitis, Mycoplasma Pharyngitis pharyngitis, retropharyngeal abcess tonsillitis, tracheobronchitis, upper respiratory infection, uvulitis, viral syndrome. Data reviewed: vital signs, nurses notes. Consideration of Admission/Observation Escalation of care including admission/observation considered. I considered the following discharge prescriptions or medication management in the emergency department Medications were administered in the Emergency Department. See MAR. Test considered but Not performed: Labs: NO LABS , NO SWABS. Historians other than the Patient: PT WELL INFORMED. Care significantly affected by the following chronic conditions: ANXIETY, SEIZURES. 03/27 11:09 Order name: PO challenge; Complete Time: 11:29 soy Administered Medications: 11:35 Drug: Rocephin (cefTRIAXone) IM 1 grams IM once Route: IM; Site: left ventrogluteal; iw 11:35 Drug: Amoxicillin-Clavulanate PO 875 mg PO once Route: PO; iw Disposition Summary: 03/27/24 11:20 Discharge Ordered Notes: Location: Home soy Problem: new soy Symptoms: have improved soy Condition: Stable soy Diagnosis - Acute tonsillitis, unspecified soy - Streptococcal tonsillitis [facility] - Fever, unspecified [facility] Followup: [facility] - With: Private Physician - When: 2 - 3 days - Reason: Recheck today's complaints, Continuance of care, Re-evaluation by your physician Discharge Instructions: - Discharge Summary Sheet [facility] - Fever, Adult [facility] - Tonsillitis [facility] - Upper Respiratory Infection, Adult soy - Tonsillitis, [id number] [facility] - Tonsillectomy, Adult, Care After, [id number] [facility] - Fever, Adult, [id number] [facility] Forms: - Medication Reconciliation Form [facility] - Antibiotic Education [facility] - Prescription Opioid Use [facility] - Patient Portal Instructions [facility] - Leadership Thank You Letter [facility] Prescriptions: - Augmentin 875-125 mg Oral Tablet - take 1 tablet ORAL route every 12 hours for 10 days; 20 tablet; Refills: 0, [facility] Product Selection Permitted - Fluconazole 200 mg Oral tablet - take 1 tablet ORAL route once TAKE IN 1 WEEK X 1 DOSE , REPEAT THE FOLLOWING [facility] WEEK IF SYMPTOMS PERSIST; 2 tablet; Refills: 0, Product Selection Permitted Signatures: Sen Diana MD MD cha Williams, Irene RN RN iw
[2024-03-27] MEDS ORDERED: LIDOCAINE 1% MPF 5 ML VIAL ONE (11:25)
[2024-03-27] MEDS ORDERED: CEFTRIAXONE 1000 MG/VIAL ONE (11:25)
[2024-03-27] MEDS ORDERED: AMOX/K CLAV 875 MG TAB ONE (11:26)
[2024-03-27 15:31] VITALS: BP 124/74; TEMP 98.2; O2SAT 100
== END 2024-03-27 11:59 | disposition home or self-care (01) ==
LOC: ER 09:45
DX: J03.00 Acute streptococcal tonsillitis, unspecified (principal)
CPT/HCPCS: 96372; 99284; J0696; J2003

== ENCOUNTER 2024-07-15 17:10 | Emergency (ER) | payer OTHER, SELFPAY ==
[2024-07-15 17:51] LABS: Specific Gravity > 1.030 (1.005-1.030); Sqamous Epithelial <5 /HPF (None Seen); Urine Bacteria <20 /HPF (<20); Urine Bilirubin NEGATIVE (Negative); Urine Blood Negative (Negative); Urine Clarity Turbid (Clear); Urine Color Yellow (Yellow); Urine Culture Reflex Order NOT NEEDED; Urine Glucose NEGATIVE (Negative); Urine Ketones 2+ (Negative); Urine Microscopic Reflex YN ORDER UMIC; Urine Mucus 4+ /HPF (None Seen); Urine Nitrite NEGATIVE (Negative); Urine Protein 1+ (Negative); Urine RBC <5 /HPF (None Seen); Urine Urobilinogen 1+ (Normal); Urine WBC <5 /HPF (<5); Urine Yeast (Budding) Trace /HPF (None Seen)
--- NOTE | 2024-07-15 18:13 | EDPHYS ---
Physician Documentation [facility] Name: Shannon Mcgregor Age: 29 yrs Sex: Female : 1995 Arrival Date: 07/15/2024 Time: 17:10 Bed 11 Private MD: ED Physician Chao Melara HPI: 07/15 17:40 This 29 yrs old Female presents to ER via Ambulatory with complaints of dr5 vaginal smell, test-bloodwork. 17:40 Onset: The symptoms/episode began/occurred 3 day(s) ago. Patient is a 29-year-old dr5 female with history of anxiety coming in with 3 days of vaginal odor consistent with thrush. Patient also reports that she would like to have a test done through blood due to her period being 1 week late. Patient denies any vaginal pain or vaginal bleeding.. 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 - Infectious Disease History:: Denies. - Social history:: Smoking status: Patient denies any tobacco usage or history of. Patient uses alcohol, occasionally. street drugs, Xanax occasionally. ROS: 17:40 Constitutional: as per hpi dr5 Exam: 17:40 Constitutional: This is a well developed, well nourished patient who is awake, alert, dr5 and in no acute distress. Head/Face: Normocephalic, atraumatic. Eyes: Pupils equal round and reactive to light, extra-ocular motions intact. Lids and lashes normal. Conjunctiva and sclera are non-icteric and not injected. Cornea within normal limits. Periorbital areas with no swelling, redness, or edema. Neck: Trachea midline, no thyromegaly or masses palpated, and no cervical lymphadenopathy. Supple, full range of motion without nuchal rigidity, or vertebral point tenderness. No Meningismus. Chest/axilla: Normal chest wall appearance and motion. Nontender with no deformity. No lesions are appreciated. Cardiovascular: Regular rate and rhythm with a normal S1 and S2. Normal PMI, no JVD. No pulse deficits. Respiratory: Lungs have equal breath sounds bilaterally, clear to auscultation. No rales, rhonchi or wheezes noted. No increased work of breathing, no retractions or nasal flaring. Abdomen/GI: Soft, non-tender, non-distended Skin: Warm, dry with normal turgor. Normal color with no rashes, no lesions, and no evidence of cellulitis. Neuro: Awake and alert, GCS 15, oriented to person, place, time, and situation. Cranial nerves II-XII grossly intact. Motor strength 5/5 in all extremities. Sensory grossly intact. Cerebellar exam normal. Normal gait. Vital Signs: 17:23 BP 140 / 83; Pulse 83; Resp 15; Temp 98.1; Pulse Ox 98% on R/A; Weight 57.61 kg; Height cm10 5 ft. 2 in. ; Pain 0/10; 17:23 Body Mass Index 23.23 (57.61 kg, 157.48 cm) cm10 17:23 Pain Scale: Adult cm10 MDM: 17:19 Medical Screening Exam initiated dr5 18:15 Differential diagnosis: viral Infection, bacterial infection, UTI. Data reviewed: vital dr5 signs, nurses notes. Care significantly affected by the following chronic conditions: Anxiety. Care significantly affected by the following Social Determinants of Health: Poor access to healthcare and/or lack of insurance, Poor access to transportation, Problems related to employment. Counseling: I had a detailed discussion with the patient and/or guardian regarding the historical points, exam findings, and any diagnostic results supporting the discharge/admit diagnosis, the presence of at least one elevated blood pressure reading (>120/80) during this emergency department visit, lab results, the need for outpatient follow up, for definitive care, a family practitioner, to return to the emergency department if symptoms worsen or persist or if there are any questions or concerns that arise at home. ED course: Will treat patient with cephalexin for potential development of UTI. Will treat BV with Flagyl. Recommended patient not drink alcohol for the next week while she is on Flagyl. Will also give patient Diflucan for yeast infection. Went over results with patient. All questions answered.. 07/15 17:28 Order name: HCG-Quantitative; Complete Time: 18:08 dr5 07/15 17:28 Order name: Urinalysis w/ reflexes; Complete Time: 17:54 dr5 Administered Medications: No medications were administered Disposition Summary: 07/15/24 18:13 Discharge Ordered Notes: Location: Home dr5 Condition: Stable dr5 Diagnosis - Acute vaginitis dr5 Followup: dr5 - With: Emergency Department - When: As needed - Reason: Worsening of condition Followup: dr5 - With: Private Physician - When: 1 - 2 days - Reason: Recheck today's complaints, Continuance of care, Re-evaluation by your physician Discharge Instructions: - Discharge Summary Sheet dr5 - Bacterial Vaginosis dr5 - Vaginal Yeast Infection, Adult dr5 Forms: - Medication Reconciliation Form dr5 - Antibiotic Education dr5 - Patient Portal Instructions dr5 - Leadership Thank You Letter dr5 Prescriptions: - Cephalexin 500 mg Oral Capsule - take 1 capsule ORAL route every 12 hours for 10 days; 20 capsule; Refills: 0, dr5 Product Selection Permitted - Flagyl 500 mg Oral Tablet - take 1 tablet ORAL route every 12 hours for 7 days; 14 tablet; Refills: 0, dr5 Product Selection Permitted - Fluconazole 150 mg Oral tablet - take 1 tablet ORAL route one time for 1 day; 1 tablet; Refills: 0, Product dr5 Selection Permitted Signatures: Dispatcher [employer] Nolvia Davis RN RN cm10 Chung Llanos, NUTRITION PROGRAM INSTRUCTOR-C NUTRITION PROGRAM INSTRUCTOR-Cdr5
--- NOTE | 2024-07-15 18:13 | ER ---
[facility] Name: Shannon Mcgregor Age: 29 yrs Sex: Female : 1995 Arrival Date: 07/15/2024 Time: 17:10 Bed 11 Private MD: Diagnosis: Acute vaginitis Presentation: 07/15 17:23 Chief complaint: Patient states: For the past 3 days pt has noticed a "fishy" smell cm10 when being intimate with boyfriend. Denies any pain. Also requests a serum preg test. Coronavirus screen: Client denies travel out of the [place] in the last 14 days. Ebola Screen: Patient denies travel to an Ebola-affected area in the 21 days before illness onset. Initial Sepsis Screen: Does the patient meet any 2 criteria? No. Patient's initial sepsis screen is negative. Does the patient have a suspected source of infection? No. Patient's initial sepsis screen is negative. Risk Assessment: Do you want to hurt yourself or someone else? Patient reports no desire to harm self or others. Onset of symptoms was July 15, 2024. 17:23 Method Of Arrival: Ambulatory cm10 17:23 Acuity: ROLANDO 4 cm10 Triage Assessment: 17:26 General: Appears in no apparent distress. uncomfortable, Behavior is calm, cooperative. cm10 Pain: Denies pain. Neuro: No deficits noted. Level of Consciousness is awake, alert, obeys commands, Oriented to person, place, time, situation, Appropriate for age. Respiratory: No deficits noted. Airway is patent Respiratory effort is even, unlabored, Respiratory pattern is regular, symmetrical. : Reports Vaginal odor when being intimate. 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 - Infectious Disease History:: Denies. - Social history:: Smoking status: Patient denies any tobacco usage or history of. Patient uses alcohol, occasionally. street drugs, Xanax occasionally. Screenin:[address] [facility] ED Fall Risk Assessment (Adult) History of falling in the last 3 months, cm10 including since admission No falls in past 3 months (0 pts) Confusion or Disorientation No (0 pts) Intoxicated or Sedated No (0 pts) Impaired Gait No (0 pts) Mobility Assist Device Used No (0 pt) Altered Elimination No (0 pt) Score/Fall Risk Level 0 - 2 = Low Risk Oriented to surroundings, Maintained a safe environment, Hourly rounding (assess needs \\T\\ fall precautionary measures) done. Abuse screen: Denies threats or abuse. Denies injuries from another. Nutritional screening: No deficits noted. Tuberculosis screening: No symptoms or risk factors identified. Vital Signs: 17:23 BP 140 / 83; Pulse 83; Resp 15; Temp 98.1; Pulse Ox 98% on R/A; Weight 57.61 kg; Height cm10 5 ft. 2 in. ; Pain 0/10; 17:23 Body Mass Index 23.23 (57.61 kg, 157.48 cm) cm10 17:23 Pain Scale: Adult cm10 ED Course: 17:15 Patient arrived in ED. al6 17:19 Chung Llanos, [facility] 17:19 Chao Melara MD is Attending Physician. dr5 17:25 Triage completed. cm10 17:26 Arm band placed on right wrist. Patient placed in an exam room, on a stretcher. cm10 17:32 Nolvia Gloria, RN is Primary Nurse. cm10 17:32 Patient has correct armband on for positive identification. Bed in low position. Call cm10 light in reach. Side rails up X 1. Provided Education on: ER process and procedures.. 17:32 Initial lab(s) drawn, by me, sent to lab. cm10 18:18 No provider procedures requiring assistance completed. Patient did not have IV access cm10 during this emergency room visit. Administered Medications: No medications were administered Medication: 17:32 VIS not applicable for this client. cm10 Outcome: 18:13 Discharge ordered by . dr5 18:18 Discharged to home ambulatory, with significant other, cm10 18:18 Condition: good 18:18 Discharge instructions given to patient, Instructed on discharge instructions, follow up and referral plans. medication usage, Demonstrated understanding of instructions, follow-up care, medications, Prescriptions given X 3, 18:19 Patient left the ED. cm10 Signatures: Nolvia Gloria, AQUILES RN cm10 Chung Llanos, VOICE COACH-C VOICE COACH-Cdr5 Tammie Whatley
[2024-07-15 18:30] VITALS: BP 140/83; TEMP 98.1; O2SAT 98
== END 2024-07-15 18:19 | disposition home or self-care (01) ==
LOC: ER 17:10
DX: N76.0 Acute vaginitis (principal)
CPT/HCPCS: 36415; 81001; 84702; 99283

== ENCOUNTER 2024-09-24 16:56 | Emergency (ER) | payer OTHER ==
[2024-09-24] MEDS ORDERED: ALBUTEROL 2.5 MG/3 ML NEB SOL ONE (17:24)
[2024-09-24] MEDS ORDERED: IPRATROPIUM BROM 0.5MG/2.5ML ONE (17:24)
[2024-09-24 17:49] LABS: SARS-CoV-2 Antigen Rapid Res Negative (Negative)
[2024-09-24 18:39] LABS: Specific Gravity 1.016 (1.005-1.030)
--- NOTE | 2024-09-24 19:21 | ER ---
Nurse's Notes [facility] Name: Shannon Mcgregor Age: 29 yrs Sex: Female : 1995 Arrival Date: 09/24/2024 Time: 16:56 Bed DX4 Private MD: Diagnosis: Cough Presentation: 09/24 17:17 Chief complaint: Cough and congestion x 2 days, worsening SOB x 1 week. On day 4 of hb Zithromax and steroids. Coronavirus screen: At this time, the client does not indicate any symptoms associated with coronavirus-19. Ebola Screen: No symptoms or risks identified at this time. Initial Sepsis Screen: Does the patient meet any 2 criteria? No. Patient's initial sepsis screen is negative. Does the patient have a suspected source of infection? No. Patient's initial sepsis screen is negative. Risk Assessment: Do you want to hurt yourself or someone else? Patient reports no desire to harm self or others. Onset of symptoms was September 17, 2024. 17:17 Method Of Arrival: Ambulatory hb 17:17 Acuity: ROLANDO 3 hb Historical: - Allergies: 17:18 Codeine; hb - PMHx: 17:18 Anxiety; Seizure; hb - PSHx: 17:18 Appendectomy; hb - Immunization history:: Adult Immunizations up to date. - Infectious Disease History:: Denies. - Social history:: Smoking status: Patient denies any tobacco usage or history of. Assessment: 19:16 Reassessment: patient approaches this RN and states, I know y'all are busy but if its kc6 going to be too much longer I would rather just go home and rest." LANDEN Horne made aware. Vital Signs: 17:17 BP 148 / 89; Pulse 74; Resp 20; Temp 98.4; Pulse Ox 100% on R/A; Weight 51.71 kg; hb Height 5 ft. 3 in. ; Pain 5/10; 17:17 Body Mass Index 20.19 (51.71 kg, 160.02 cm) hb 17:17 Pain Scale: Adult hb ED Course: 16:58 Patient arrived in ED. mr 16:58 Christie Martínez FNP-C [facility]. kb 16:58 Shaka Mcgraw DO is Attending Physician. kb 17:18 Triage completed. hb 17:19 Arm band placed on. hb 17:28 SARS RAPID Sent. hb Administered Medications: 17:28 Drug: Albuterol Inhalation 2.5 mg Inhalation once Route: Inhalation; hb 17:28 Drug: Ipratropium Inhalation Aerosol 0.5 mg Inhalation once Route: Inhalation; hb Outcome: 19:20 Discharge ordered by . kb 19:27 Patient left the ED. hb Signatures: Christie Martínez, CHELY-C BILL DISTRIBUTOR-Onelia Vidal, Arik Reg mr Denisa English RN RN Lurdes Trinidad RN RN [id number] Corrections: (The following items were deleted from the chart) 17:19 17:18 Allergies: Zithromax; hb hb
--- NOTE | 2024-09-24 19:21 | EDPHYS ---
Physician Documentation [facility] Name: Shannon Mcgregor Age: 29 yrs Sex: Female : 1995 Arrival Date: 09/24/2024 Time: 16:56 Bed DX4 Private MD: ED Physician Shaka Mcgraw HPI: 09/24 17:02 This 29 yrs old Female presents to ER via Unassigned with complaints of Shortness Of kb Breath. 17:02 Pt is a 29 year old female who presents for shortness of breath that started 6 days kb ago. States she had a virtual appt with her PCP 4 days ago, was started on a steroid, z-pack and an inhaler. States the shortness of breath increased again today. Reports fever, cough and congestion as well. . Historical: - Allergies: 17:18 Codeine; hb - PMHx: 17:18 Anxiety; Seizure; hb - PSHx: 17:18 Appendectomy; hb - Immunization history:: Adult Immunizations up to date. - Infectious Disease History:: Denies. - Social history:: Smoking status: Patient denies any tobacco usage or history of. ROS: 17:03 Constitutional: As per HPI kb Exam: 17:03 Constitutional: This is a well developed, well nourished patient who is awake, alert, kb and in no acute distress. Head/Face: Normocephalic, atraumatic. ENT: Moist Mucous membranes Cardiovascular: Regular rate Skin: Warm, dry with normal turgor. Normal color. MS/ Extremity: Pulses equal, no cyanosis. Neurovascular intact. Full, normal range of motion. Neuro: Awake and alert, GCS 15, oriented to person, place, time, and situation. 17:03 Respiratory: mild respiratory distress is noted, Respirations: labored breathing, that is mild, Breath sounds: are clear throughout, Vital Signs: 17:17 BP 148 / 89; Pulse 74; Resp 20; Temp 98.4; Pulse Ox 100% on R/A; Weight 51.71 kg; hb Height 5 ft. 3 in. ; Pain 5/10; 17:17 Body Mass Index 20.19 (51.71 kg, 160.02 cm) hb 17:17 Pain Scale: Adult hb MDM: 16:58 Medical Screening Exam initiated kb 19:21 Differential diagnosis: asthma, pneumonia, bronchitis, viral illness. Data reviewed: kb vital signs, nurses notes. I considered the following discharge prescriptions or medication management in the emergency department I discussed and recommended Over The Counter medications, Antibiotics: At this time antibiotics are not recommended. Test considered but Not performed: X-ray: CXR considered and ordered but pt does not want to wait on xray any longer. States she is feeling better and would like to go home. Will follow up with PCP. Counseling: I had a detailed discussion with the patient and/or guardian regarding the historical points, exam findings, and any diagnostic results supporting the discharge/admit diagnosis, the need for outpatient follow up, a family practitioner, to return to the emergency department if symptoms worsen or persist or if there are any questions or concerns that arise at home. 09/24 17:04 Order name: SARS RAPID; Complete Time: 17:51 kb 09/24 18:08 Order name: Test, Urine; Complete Time: 18:40 kb 09/24 17:04 Order name: EKG - Nurse/Tech kb Administered Medications: 17:28 Drug: Albuterol Inhalation 2.5 mg Inhalation once Route: Inhalation; hb 17:28 Drug: Ipratropium Inhalation Aerosol 0.5 mg Inhalation once Route: Inhalation; hb Disposition: 17:05 I was immediately available on-site in the Emergency Department for consultation in the ms3 care of the patient. Disposition Summary: 09/24/24 19:20 Discharge Ordered Notes: Location: Home kb Condition: Stable kb Diagnosis - Cough kb Followup: kb - With: Emergency Department - When: As needed - Reason: Worsening of condition Followup: kb - With: Private Physician - When: 2 - 3 days - Reason: Recheck today's complaints, Continuance of care, Re-evaluation by your physician Discharge Instructions: - Discharge Summary Sheet kb - Cough, Adult, [id number] kb Forms: - Medication Reconciliation Form kb - Antibiotic Education kb - Prescription Opioid Use kb - Patient Portal Instructions kb - Leadership Thank You Letter kb Signatures: Dispatcher [employer] Christie Lino, ADORE MO-Denisa Cm, RN RN Shaka Mcdermott, DO ms3 Corrections: (The following items were deleted from the chart) 17:19 17:18 Allergies: Zithromax; hb hb
[2024-09-24 19:41] VITALS: BP 148/89; TEMP 98.4; O2SAT 100
== END 2024-09-24 19:27 | disposition home or self-care (01) ==
LOC: ER 16:56
DX: R05.9 Cough, unspecified (principal); R06.02 Shortness of breath; Z11.52 Encounter for screening for COVID-19
CPT/HCPCS: 36415; 81025; 99284; 87426; J7613; J7644

== ENCOUNTER 2025-02-07 14:25 | Emergency (ER) | payer OTHER ==
[2025-02-07] MEDS ORDERED: ONDANSETRON 4 MG/2 ML VIAL ONE (15:06)
[2025-02-07 15:13] LABS: Absolute Lymphocytes (CBC) 1.6 K/uL (0.7-4.9); Hematocrit 38.9 % (36.0-45.0); Hemoglobin 13.2 g/dL (12.0-15.0); MCH 29.8 pg (27.0-35.0); MCHC 33.9 g/dL (32.0-36.0); MCV 87.8 fL (80-100); MPV 8.7 fL (7.6-11.3); Nucleated RBC Absolute Count 0.0 (0-0); Nucleated Red Blood Cells % 0.1 % (0-0); RBC Red Blood Cell Count 4.43 M/uL (3.86-4.86); White Blood Count 4.90 thou/uL (4.3-10.9)
[2025-02-07 15:27] LABS: METHAMPHETAM NEGATIVE (NEGATIVE); THC Cannibis POSITIVE (NEGATIVE)
[2025-02-07 15:37] LABS: ALT/SGPT 24 U/L (13-56); AST/SGOT < 10 U/L (15-37); Albumin 3.3 g/dL (3.4-5.0); Albumin/Globulin Ratio 0.9 (1.1-1.8); Alkaline Phosphatase 42 U/L (45-117); Anion Gap 10.6 mEq/L (5.0-15.0); BUN Blood Urea Nitrogen 12 mg/dL (7-18); Globulin 3.5 g/dL (2.3-3.5); Glucose Level 111 mg/dL (74-106); Potassium 3.6 mEq/L (3.5-5.1)
--- NOTE | 2025-02-07 16:42 | ER ---
Nurse's Notes [facility] Name: Shannon Mcgregor Age: 29 yrs Sex: Female : 1995 Arrival Date: 02/07/2025 Time: 14:25 Bed 18 Private MD: Diagnosis: Adverse effect of benzodiazepines;Benzodiazepine abuse;Illicit drug use;Withdrawal Presentation: 02/07 14:42 Chief complaint: Patient states: WITHDRAWALS FROM XANAX AND COCAINE. REPORTS CHILLS, dd2 SWEATING, HEART RACING, 4-5 BARS XANAX A DAY AND COCAINE EVERY DAY X 6 MONTHS. REPORTS LAST INTAKE WAS TUESDAY. Coronavirus screen: At this time, the client does not indicate any symptoms associated with coronavirus-19. Ebola Screen: No symptoms or risks identified at this time. Initial Sepsis Screen: Does the patient meet any 2 criteria? No. Patient's initial sepsis screen is negative. Does the patient have a suspected source of infection? No. Patient's initial sepsis screen is negative. Risk Assessment: Do you want to hurt yourself or someone else? Patient reports no desire to harm self or others. Onset of symptoms was February 07, 2025 at 04:00. 14:42 Method Of Arrival: Ambulatory dd2 14:42 Acuity: ROLANDO 3 dd2 Triage Assessment: 14:47 General: Appears in no apparent distress. uncomfortable, unkempt, Behavior is calm, dd2 cooperative, appropriate for age. Pain: Denies pain. Neuro: No deficits noted. Level of Consciousness is awake, alert, obeys commands, Oriented to person, place, time, situation, Appropriate for age. Respiratory: Airway is patent Respiratory effort is even, unlabored, Respiratory pattern is regular, symmetrical. HEADER UP: 14:47 LMP N/A - Irregular menses, Not dd2 Historical: - Allergies: 14:47 No Known Allergies; dd2 - PMHx: 14:47 Anxiety; Seizure; dd2 - PSHx: 14:47 Appendectomy; dd2 - Immunization history:: Adult Immunizations not up to date. - Infectious Disease History:: Denies. - Social history:: Smoking status: Reported history of juuling and/or vaping. Screenin:00 [facility] ED Fall Risk Assessment (Adult) History of falling in the last 3 months, ar8 including since admission No falls in past 3 months (0 pts) Confusion or Disorientation No (0 pts) Intoxicated or Sedated No (0 pts) Impaired Gait No (0 pts) Mobility Assist Device Used No (0 pt) Altered Elimination No (0 pt) Score/Fall Risk Level 0 - 2 = Low Risk Oriented to surroundings, Maintained a safe environment. Abuse screen: Denies threats or abuse. Nutritional screening: No deficits noted. Tuberculosis screening: No symptoms or risk factors identified. Assessment: 14:55 General: Appears in no apparent distress. Behavior is calm, cooperative. Pain: Denies ar8 pain. Neuro: Level of Consciousness is awake, alert, obeys commands, Oriented to person, place, time, situation. 14:55 Cardiovascular: Patient's skin is warm and dry. Respiratory: Airway is patent ar8 Respiratory effort is even, unlabored, Respiratory pattern is regular, symmetrical. GI: Reports nausea. : No signs and/or symptoms were reported regarding the genitourinary system. EENT: No signs and/or symptoms were reported regarding the EENT system. Derm: No signs and/or symptoms reported regarding the dermatologic system. Musculoskeletal: Reports generalized weakness. 16:23 Reassessment: Patient and/or family updated on plan of care and expected duration. Pain ar8 level reassessed. Patient is alert, oriented x 3, equal unlabored respirations, skin warm/dry/pink. Patient states feeling better. Vital Signs: 14:42 BP 120 / 84; Pulse 63; Resp 16; Temp 99.3; Pulse Ox 99% ; Weight 47.17 kg; Height 5 ft. dd2 2 in. ; Pain 0/10; 15:15 BP 116 / 66; Pulse 48; Resp 14; Pulse Ox 97% on R/A; Pain 0/10; ar8 15:45 BP 112 / 68; Pulse 54; Resp 15; Pulse Ox 98% on R/A; Pain 0/10; ar8 16:30 BP 108 / 69; Pulse 55; Resp 14; Pulse Ox 97% on R/A; Pain 0/10; ar8 17:00 BP 109 / 65; Pulse 46; Resp 15; Pulse Ox 97% on R/A; Pain 0/10; ar8 14:42 Body Mass Index 19.02 (47.17 kg, 157.48 cm) dd2 14:42 Pain Scale: Adult dd2 15:15 Pain Scale: Adult ar8 15:45 Pain Scale: Adult ar8 16:30 Pain Scale: Adult ar8 17:00 Pain Scale: Adult ar8 ED Course: 14:28 Patient arrived in ED. al6 14:29 Dilip Howard NP is PHCP. cr8 14:29 Shaka Mcgraw DO is Attending Physician. cr8 14:47 Triage completed. dd2 14:47 Arm band placed on right wrist. dd2 14:50 Vern Rea, RN is Primary Nurse. ar8 15:00 Bed in low position. Call light in reach. Side rails up X2. Provided Education on: plan ar8 of care. Client placed on continuous cardiac and pulse oximetry monitoring. NIBP monitoring applied. 15:00 No provider procedures requiring assistance completed. Inserted saline lock: 20 gauge ar8 in left forearm, using aseptic technique. Blood collected. Flushed with 10 mL NS. 15:00 Urine collected: clean catch specimen, sagrario colored. ar8 17:14 IV discontinued, intact, bleeding controlled, No redness/swelling at site. Pressure ar8 dressing applied. Administered Medications: 15:16 Drug: Ondansetron IVP 4 mg IVP once; over 2 minutes Route: IVP; Site: left forearm; ar8 15:47 Follow up: Response: No adverse reaction; Nausea is decreased ar8 Medication: 15:00 VIS not applicable for this client. ar8 Outcome: 16:41 Discharge ordered by MD. cr8 17:14 Discharged to home ambulatory, ar8 17:14 Condition: stable 17:14 Discharge instructions given to patient, Instructed on discharge instructions, follow up and referral plans. medication usage, Demonstrated understanding of instructions, follow-up care, medications, Prescriptions given X 1, 17:14 Patient left the ED. ar8 Signatures: PIERCE CHAWLA RN RN dd2 Tammie Whatley al6 Dilip Howard NP DATA COLLECTION SPECIALIST cr8 Vern Rea, AQUILES RN ar8 Corrections: (The following items were deleted from the chart) 14:47 14:47 Allergies: Codeine; dd2 dd2
--- NOTE | 2025-02-07 16:42 | EDPHYS ---
Physician Documentation [facility] Name: Shannon Mcgregor Age: 29 yrs Sex: Female : 1995 Arrival Date: 02/07/2025 Time: 14:25 Bed 18 Private MD: ED Physician Shaka Mcgraw HPI: 02/07 16:12 This 29 yrs old Female presents to ER via Ambulatory with complaints of withdrawls cr8 drugs. 16:12 Patient is a 29-year-old female with a history of illicit drug use that comes emergency cr8 room complaining of withdrawal symptoms. Reports that she for the last 6 months has been taking 4-5 Xanax per day and using cocaine. Reports Tuesday night she stopped using. Reports today she has felt nauseous and diaphoretic. Denies any shortness of breath chest pain abdominal pain. Denies diarrhea or vomiting.. EMERGENCY CARE TECH: 14:47 LMP N/A - Irregular menses, Not dd2 Historical: - Allergies: 14:47 No Known Allergies; dd2 - PMHx: 14:47 Anxiety; Seizure; dd2 - PSHx: 14:47 Appendectomy; dd2 - Immunization history:: Adult Immunizations not up to date. - Infectious Disease History:: Denies. - Social history:: Smoking status: Reported history of juuling and/or vaping. ROS: 16:35 Constitutional: as per HPI cr8 Exam: 16:35 Constitutional: This is a well developed, well nourished patient who is awake, alert, cr8 and in no acute distress. Head/Face: Normocephalic, atraumatic. Cardiovascular: Regular rate and rhythm with a normal S1 and S2. No gallops, murmurs, or rubs. Respiratory: Lungs have equal breath sounds bilaterally, clear to auscultation. No rales, rhonchi or wheezes noted. No increased work of breathing. Abdomen/GI: Soft, non-tender, with normal bowel sounds. No distension. No guarding or rebound. Skin: Warm, dry with normal turgor. Normal color with no rashes, no lesions, and no evidence of cellulitis. MS/ Extremity: Pulses equal, no cyanosis. Neurovascular intact. Full, normal range of motion. Neuro: Awake and alert, GCS 15, oriented to person, place, time, and situation. Cranial nerves II-XII grossly intact. Motor strength 5/5 in all extremities. Sensory grossly intact. Vital Signs: 14:42 BP 120 / 84; Pulse 63; Resp 16; Temp 99.3; Pulse Ox 99% ; Weight 47.17 kg; Height 5 ft. dd2 2 in. ; Pain 0/10; 15:15 BP 116 / 66; Pulse 48; Resp 14; Pulse Ox 97% on R/A; Pain 0/10; ar8 15:45 BP 112 / 68; Pulse 54; Resp 15; Pulse Ox 98% on R/A; Pain 0/10; ar8 16:30 BP 108 / 69; Pulse 55; Resp 14; Pulse Ox 97% on R/A; Pain 0/10; ar8 17:00 BP 109 / 65; Pulse 46; Resp 15; Pulse Ox 97% on R/A; Pain 0/10; ar8 14:42 Body Mass Index 19.02 (47.17 kg, 157.48 cm) dd2 14:42 Pain Scale: Adult dd2 15:15 Pain Scale: Adult ar8 15:45 Pain Scale: Adult ar8 16:30 Pain Scale: Adult ar8 17:00 Pain Scale: Adult ar8 MDM: 14:42 Medical Screening Exam initiated cr8 16:35 Data reviewed: vital signs, nurses notes, lab test result(s), I have discussed the cr8 patient's presentation/case with the attending Emergency Department Physician;. Consideration of Admission/Observation Considered possible admission for withdrawal symptoms but her symptoms are very minor and there is no evidence of tachycardia hypertension. Therefore we will discharge have her follow-up PCP.. Counseling: I had a detailed discussion with the patient and/or guardian regarding the historical points, exam findings, and any diagnostic results supporting the discharge/admit diagnosis, lab results, the need for outpatient follow up. ED course: Considered acute withdrawal, acute kidney injury, dehydration, electrolyte abnormality, SI. Plan ordered CBC CMP urinalysis drug screens tox labs. They were unremarkable except for positive for cocaine benzos and THC. There areno signs of DKA in labs. Patient BMP with normal electrolytes and no sign of dehydration causing prerenal LENY. Patient denies any tactile, staff auditor or visual hallucinations, AAOx3. Given history and physical presentation not consistent with overt toxidrome, ingestion. Presentation not consistent with a medical emergency at this time. Will prescribe Librium taper have her follow-up with her PCP. No indication for admitting patient at this time.. 02/07 14:45 Order name: CBC with Diff; Complete Time: 15:15 cr8 02/07 14:45 Order name: CMP; Complete Time: 15:39 cr8 02/07 14:45 Order name: Test, Urine; Complete Time: 15:36 cr8 02/07 14:45 Order name: UDS; Complete Time: 15:31 cr8 02/07 14:45 Order name: Acetaminophen; Complete Time: 15:39 cr8 02/07 14:45 Order name: Salicylate; Complete Time: 16:15 cr8 02/07 14:45 Order name: ETOH Level; Complete Time: 15:55 cr8 02/07 14:45 Order name: Saline Lock; Complete Time: 15:19 cr8 Administered Medications: 15:16 Drug: Ondansetron IVP 4 mg IVP once; over 2 minutes Route: IVP; Site: left forearm; ar8 15:47 Follow up: Response: No adverse reaction; Nausea is decreased ar8 Disposition: 20:21 I was immediately available on-site in the Emergency Department for consultation in the ms3 care of the patient. Disposition Summary: 02/07/25 16:41 Discharge Ordered Notes: Location: Home cr8 Condition: Stable cr8 Diagnosis - Adverse effect of benzodiazepines cr8 - Benzodiazepine abuse cr8 - Illicit drug use cr8 - Withdrawal cr8 Followup: cr8 - With: Emergency Department - When: As needed - Reason: If symptoms return, Trouble breathing, Worsening of condition, Recheck today's complaints, Continuance of care Followup: cr8 - With: Private Physician - When: 1 - 2 days - Reason: Recheck today's complaints, Continuance of care, Re-evaluation by your physician Discharge Instructions: - Discharge Summary Sheet cr8 - Cocaine Use Disorder cr8 - Benzodiazepine Withdrawal cr8 Forms: - Medication Reconciliation Form cr8 - Prescription Opioid Use cr8 - Patient Portal Instructions cr8 - Leadership Thank You Letter cr8 - Work release form ar8 Prescriptions: - chlordiazepoxide HCl 25 mg Oral capsule - take 1 capsule ORAL route Use as Directed Take one tablet every 8 hours for 2 cr8 days: then take one tablet every 12 hours for 2 days: then take one table once a day for 2 days.; 12 capsule; Refills: 0, Product Selection Permitted Signatures: Dispatcher [employer] EDMS Shaka Mcgraw DO DO ms3 PIERCE CHAWLA RN RN dd2 Dilip Howard NP [employer] cr8 Vern Rea RN RN ar8 Corrections: (The following items were deleted from the chart) 14:47 14:47 Allergies: Codeine; dd2 dd2 16:35 16:12 Patient is a 29-year-old female with a history of illicit drug use that comes cr8 emergency room complaining of withdrawal symptoms. Reports that she for the last 6 months has been taking 4-5 Xanax per day and using cocaine. Reports Tuesday night she stopped using. Reports today she has felt nauseous and diaphoretic. Denies any shortness of breath chest pain abdominal pain. Denies diarrhea or vomiting.. cr8
[2025-02-07 17:21] VITALS: TEMP 99.3
[2025-02-07 17:26] VITALS: O2SAT 97
[2025-02-07 17:28] VITALS: BP 109/65
== END 2025-02-07 17:14 | disposition home or self-care (01) ==
LOC: ER 14:25
DX: F15.93 Other stimulant use, unspecified with withdrawal (principal); F19.10 Other psychoactive substance abuse, uncomplicated; T42.4X5A Adverse effect of benzodiazepines, initial encounter
CPT/HCPCS: 85025; 36415; 81025; 80053; 80307; 96374; 99284; 80143; 80179; 82077; J2405